=== PATIENT | male | born 1965 | race African-American/Black ===

== ENCOUNTER 2016-09-17 11:00 | Emergency (ER) | payer MEDICARE, MEDICAID ==
--- NOTE | 2016-09-17 11:35 | ER Document Report ---
ED Medical Screen (RME) - General Stated Complaint: EAR PAIN Notes: 50 yo male c/o bilat ear pain for several minutes. pt felt like he was wheezing this morning. recently treated for URI. TRAVEL OUTSIDE OF THE [place] IN LAST 30 DAYS: No - Related Data Allergies/Adverse Reactions: Penicillins Allergy (Unknown, Verified 09/17/16 11:31) cats Allergy (Uncoded 09/17/16 11:31) Past Medical History - Past Medical History Cardiac Medical History: Reports: Hx Congestive Heart Failure, Hx Hypertension GI Medical History: Reports: Hx Gastroesophageal Reflux Disease Musculoskeltal Medical History: Reports Hx Arthritis - Left knee, Reports Hx Musculoskeletal Trauma Psychiatric Medical History: Reports: Hx Depression Past Surgical History: Reports: Hx Cardiac Surgery - VSD repair - Immunizations Immunizations up to date: Yes Hx Diphtheria, Pertussis, Tetanus Vaccination: Yes
--- NOTE | 2016-09-17 14:37 | ER Document Report ---
ED General - General Chief Complaint: Ear Pain Stated Complaint: EAR PAIN TRAVEL OUTSIDE OF THE [place] IN LAST 30 DAYS: No - HPI Patient complains to provider of: ear pain throat pain Notes: Patient coming in for multiple complaints mostly complaining of ear pain for pain. Patient also is concerned about area on his scrotum. No other complaints - Related Data Allergies/Adverse Reactions: Penicillins Allergy (Unknown, Verified 09/17/16 11:31) cats Allergy (Uncoded 09/17/16 11:31) Past Medical History - Social History Smoking Status: Never Smoker Chew tobacco use (# tins/day): No Frequency of alcohol use: None Drug Abuse: None Family History: DM Patient has suicidal ideation: No Patient has homicidal ideation: No - Past Medical History Cardiac Medical History: Reports: Hx Congestive Heart Failure, Hx Hypertension Renal/ Medical History: Denies: Hx Peritoneal Dialysis GI Medical History: Reports: Hx Gastroesophageal Reflux Disease Musculoskeltal Medical History: Reports Hx Arthritis - Left knee, Reports Hx Musculoskeletal Trauma Psychiatric Medical History: Reports: Hx Depression Past Surgical History: Reports: Hx Cardiac Surgery - VSD repair - Immunizations Immunizations up to date: Yes Hx Diphtheria, Pertussis, Tetanus Vaccination: Yes Review of Systems - Review of Systems Constitutional: No symptoms reported EENT: Ear pain, Throat pain Cardiovascular: No symptoms reported Respiratory: No symptoms reported Gastrointestinal: No symptoms reported Genitourinary: No symptoms reported Male Genitourinary: No symptoms reported Musculoskeletal: No symptoms reported Skin: No symptoms reported Hematologic/Lymphatic: No symptoms reported Neurological/Psychological: No symptoms reported -: Yes All other systems reviewed and negative Physical Exam - Vital signs Vitals: Temp Pulse Resp BP Pulse Ox 98.2 F 64 16 110/65 98 09/17/16 15:35 09/17/16 15:35 09/17/16 15:35 09/17/16 15:35 09/17/16 15:35 Interpretation: Normal - General General appearance: Appears well, Alert - HEENT Head: Normocephalic, Atraumatic Eyes: Normal Cornea: Normal Extraocular movements intact: Yes Eyelashes: Normal Pupils: PERRL Ears: Normal External canal: Normal Tympanic membrane: Serous effusion Sinus: Normal - Bilateral Nasal: Normal Pharynx: Normal Neck: Normal - Respiratory Respiratory status: No respiratory distress Chest status: Nontender Breath sounds: Normal Chest palpation: Normal - Cardiovascular Rhythm: Regular Heart sounds: Normal auscultation Murmur: No - Abdominal Inspection: Normal Distension: No distension Bowel sounds: Normal Tenderness: Nontender Organomegaly: No organomegaly - Genitourinary Inspection: Other - Patient will looks to be a nevus on the scrotum Tenderness: Nontender Cremasteric reflex: Normal Scrotum: Normal - Back Back: Normal, Nontender - Extremities General upper extremity: Normal inspection, Nontender, Normal color, Normal ROM , Normal temperature General lower extremity: Normal inspection, Nontender, Normal color, Normal ROM , Normal temperature, Normal weight bearing. No: Berto's sign - Neurological Neuro grossly intact: Yes Cognition: Normal Orientation: AAOx4 [place] Coma Scale Eye Opening: Spontaneous [place] Coma Scale Verbal: Oriented Nicole Coma Scale Motor: Obeys Commands [place] Coma Scale Total: 15 Speech: Normal Motor strength normal: LUE, RUE, LLE, RLE Sensory: Normal - Psychological Associated symptoms: Normal affect, Normal mood - Skin Skin Temperature: Warm Skin Moisture: Dry Skin Color: Normal Course - Re-evaluation Re-evalutation: 09/17/16 16:12 Will treat patient with steroids to help out with his throat pain. No signs of obvious infection patient was discharged home is was encouraged follow-up with primary care physician. - Vital Signs Vital signs: Temp Pulse Resp BP Pulse Ox 98.2 F 64 16 110/65 98 09/17/16 15:35 09/17/16 15:35 09/17/16 15:35 09/17/16 15:35 09/17/16 15:35 Discharge - Discharge Clinical Impression: Viral URI Condition: Good Disposition: HOME, SELF-CARE Instructions: Upper Respiratory Illness ([facility]), Viral Syndrome ([facility]) Additional Instructions: Your symptoms are consistent with a virus. We will give you a prescription for prednisone to help out with your pain. Follow-up with your primary care physician. Prescriptions: Prednisone [Deltasone 20 mg Tablet] 2 tab PO DAILY 5 Days Referrals: AYLA PRUITT MD [ACTIVE STAFF] - Follow up in 1 week
[2016-09-17 15:47] VITALS: BP 110/65
== END 2016-09-17 15:35 | disposition home or self-care (01) ==
LOC: ER 11:00
DX: J06.9 Acute upper respiratory infection, unspecified (principal); H92.09 Otalgia, unspecified ear; R07.0 Pain in throat
CPT/HCPCS: 99282

== ENCOUNTER 2016-11-12 18:25 | Emergency (ER) | payer MEDICARE, MEDICAID ==
[2016-11-12 20:06] VITALS: BP 135/84
--- NOTE | 2016-11-13 00:20 | ER Document Report ---
ED GI/ - General Chief Complaint: Groin Pain Stated Complaint: GROIN PAIN Notes: The patient is a 51-year-old male presents with 3 days of intermittent left groin swelling, worse when he strains. Left bulge will push back into his abdomen easily. He denies pain, nausea, vomiting, diarrhea, constipation, testicular pain, fevers or dysuria. TRAVEL OUTSIDE OF THE [place] IN LAST 30 DAYS: No - Related Data Allergies/Adverse Reactions: Penicillins Allergy (Unknown, Verified 09/17/16 11:31) cats Allergy (Uncoded 09/17/16 11:31) Past Medical History - General Information source: Patient - Social History Smoking Status: Unknown if Ever Smoked Family History: DM - Past Medical History Cardiac Medical History: Reports: Hx Congestive Heart Failure, Hx Hypertension Renal/ Medical History: Denies: Hx Peritoneal Dialysis GI Medical History: Reports: Hx Gastroesophageal Reflux Disease Musculoskeltal Medical History: Reports Hx Arthritis - Left knee, Reports Hx Musculoskeletal Trauma Psychiatric Medical History: Reports: Hx Depression Past Surgical History: Reports: Hx Cardiac Surgery - VSD repair - Immunizations Immunizations up to date: Yes Hx Diphtheria, Pertussis, Tetanus Vaccination: Yes Review of Systems - Review of Systems Notes: REVIEW OF SYSTEMS: CONSTITUTIONAL: -fevers, -chills EENT: -eye pain, -difficulty swallowing, -nasal congestion CARDIOVASCULAR:-chest pain, -syncope. RESPIRATORY: -cough, -SOB GASTROINTESTINAL: -abdominal pain, - nausea, -vomiting, -diarrhea GENITOURINARY: +left groin swelling, -dysuria, -hematuria MUSCULOSKELETAL: -back pain, -neck pain SKIN: -rash or skin lesions. HEMATOLOGIC: -easy bruising or bleeding. LYMPHATIC: -swollen, enlarged glands. NEUROLOGICAL: -altered mental status or loss of consciousness, -headache, - neurologic symptoms PSYCHIATRIC: -anxiety, -depression. ALL OTHER SYSTEMS REVIEWED AND NEGATIVE. Physical Exam - Vital signs Vitals: Temp Pulse Resp BP Pulse Ox 97.4 F 79 16 135/84 H 99 11/12/16 20:05 11/12/16 20:05 11/12/16 20:05 11/12/16 20:05 11/12/16 20:05 - Notes Notes: PHYSICAL EXAMINATION: GENERAL: Well-appearing, well-nourished and in no acute distress. HEAD: Atraumatic, normocephalic. EYES: Pupils equal round and reactive to light, extraocular movements intact, sclera anicteric, conjunctiva are normal. ENT: nares patent, oropharynx clear without exudates. Moist mucous membranes. NECK: Normal range of motion, supple without lymphadenopathy LUNGS: Breath sounds clear to auscultation bilaterally and equal. No wheezes rales or rhonchi. HEART: Regular rate and rhythm without murmurs ABDOMEN: Soft, nontender, normoactive bowel sounds. Left reducible inguinal hernia. Non-tender testicles. No guarding, no rebound. EXTREMITIES: Normal range of motion, no pitting or edema. No cyanosis. NEUROLOGICAL: Cranial nerves grossly intact. Normal speech, normal gait. Normal sensory, motor, and reflex exams. PSYCH: Normal mood, normal affect. SKIN: Warm, Dry, normal turgor, no rashes or lesions noted. Course - Re-evaluation Re-evalutation: Patient with reducible left inguinal hernia. Given surgeon to follow up with and return precautions. - Vital Signs Vital signs: Temp Pulse Resp BP Pulse Ox 97.4 F 79 16 135/84 H 99 11/12/16 20:05 11/12/16 20:05 11/12/16 20:05 11/12/16 20:05 11/12/16 20:05 Discharge - Discharge Clinical Impression: Reducible left inguinal hernia Condition: Good Disposition: HOME, SELF-CARE Additional Instructions: Follow-up with the general surgeon to have your hernia repaired. Hernia You have a hernia. A hernia forms at a weak spot in the abdominal wall. Bowel slips out of the abdominal cavity into the weak spot. Hernias tend to occur in the groin (especially in males), the fold of the thigh, the naval, or at a surgical scar. Surgical repair of the defect is usually necessary. The problem tends to get worse. It's important that you follow up as recommended. For now, you should avoid straining, heavy lifting, and vigorous exercise. Complications occur if the hernia becomes tightly stuck. You should come back immediately if the area becomes increasingly painful, swollen, or discolored, or if you develop abdominal pain and vomiting. Forms: Return to Work Referrals: PAXTON VILLANUEVA MD [Primary Care Provider] - Follow up as needed [facility] [Provider Group] - Follow up as needed
== END 2016-11-13 00:45 | disposition home or self-care (01) ==
LOC: ER 18:25
DX: K40.90 Unilateral inguinal hernia, without obstruction or gangrene, not specified as recurrent (principal); R10.30 Lower abdominal pain, unspecified
CPT/HCPCS: 99283

== ENCOUNTER → 2016-12-08 | Outpatient (CLI) | payer MEDICARE, MEDICAID | LOC: RAD 13:22 | PROVIDERS: ATTEND Surgery | DX: R10.30 Lower abdominal pain, unspecified (principal); K40.40 Unilateral inguinal hernia, with gangrene, not specified as recurrent | CPT/HCPCS: 76881 ==

== ENCOUNTER → 2016-12-25 | Outpatient (CLI) | payer MEDICARE, MEDICAID ==
--- NOTE | 2016-12-25 13:17 | RADIOLOGY REPORT (SQ) ---
EXAM DESCRIPTION: CTA CHEST COMPLETED DATE/TIME: 12/25/2016 1:04 pm REASON FOR STUDY: DYSPNEA (R06.00), CHEST PAIN (R07.9) R06.00 DYSPNEA, UNSPECIFIED R07.9 CHEST MARY N, UNSPECIFIED COMPARISON: CT angio chest 06/18/2013 CT chest abdomen pelvis 06/14/2013 TECHNIQUE: CT scan of the chest performed using helical scanning technique with dynamic intravenous contrast injection. Images reviewed with lung, soft tissue and bone windows. Reconstructed coronal and sagittal MPR images reviewed. Additional 3 dimensional post-processing performed to develop Maximal Intensity Projection images (CA P). All images stored on PACS. All CT scanners at this facility use dose modulation, iterative reconstruction, and/or weight based d osing when appropriate to reduce radiation dose to as low as reasonably achievable (ALARA). [facility]: Dose Right [facility]: CareDose [facility]: Dose Right [facility]: Teradose 4D [facility]: EffiCity CONTRAST TYPE AND DOSE: 59 mL Isovue 370- low osmolar. RENAL FUNCTION: Creatinine 1.2 RADIATION DOSE: 20.65 mGy. LIMITATIONS: None. FINDINGS: LUNGS AND PLEURA: No masses, infiltrates, pneumothorax. No pleural effusions, calcificati ons. AORTA AND GREAT VESSELS: No aneurysm or dissection. HEART: No pericardial effusion. PULMONARY ARTERIES: No emboli visualized in the main pulmonary arteries or the segmental branches. HILAR AND MEDIASTINAL STRUCTURES: No identified masses or abnormal nodes. HARDWARE: None in the chest. UPPER ABDOMEN: No significant findings. Limited exam. THYROID AND OTHER SOFT TISSUES: No masses. No adenopathy. BONES: No acute finding. Post sternotomy 3D MIPS: Confirm above findings. OTHER: No other significant finding. IMPRESSION: NORMAL CTA OF THE CHEST. NO PULMONARY EMBOLI. TECHNICAL DOCUMENTATION: JOB ID: [id number] Quality ID # [id number]: Final reports with documentation of one or more dose reduction techniques (e.g., Au tomated exposure control, adjustment of the mA and/or kV according to patient size, use of iterative reconstruction technique) 2010 [employer]- All Rights Reserved
== END ==
LOC: RAD 12:10
PROVIDERS: ATTEND Physician Assistant Medical
DX: R06.00 Dyspnea, unspecified (principal); R07.9 Chest pain, unspecified
CPT/HCPCS: 71275

== ENCOUNTER 2016-12-30 08:15 | Day surgery (SDC) | payer MEDICARE, MEDICAID ==
[2016-12-23 12:31] LABS: ABSOLUTE EOSINOPHILS # (AUTO) 0.1 10^3/uL (0.0-0.6); ABSOLUTE LYMPHOCYTES (AUTO) 1.7 10^3/uL (0.5-4.7); ABSOLUTE MONOCYTES (AUTO) 0.5 10^3/uL (0.1-1.4); BASOPHILS % (AUTO) 0.9 % (0-2); EOSINOPHILS % (AUTO) 3.3 % (0-6); HEMATOCRIT 45.2 % (37.9-51.0); HEMOGLOBIN 15.1 g/dL (13.5-17.0); HGB HCT DIFFERENCE 0.1; LYMPHOCYTES % (AUTO) 38.6 % (13-45); MEAN CORPUSCULAR HEMOGLOBIN 30.9 pg (27.0-33.4); MEAN CORPUSCULAR HGB CONC 33.3 g/dL (32.0-36.0); MEAN CORPUSCULAR VOLUME 93 fl (80-97); MONOCYTES % (AUTO) 11.2 % (3-13); RED BLOOD COUNT 4.88 10^6/uL (4.35-5.55); RED CELL DISTRIBUTION WIDTH 13.9 % (11.5-14.0); WHITE BLOOD COUNT 4.3 10^3/uL (4.0-10.5)
[2016-12-23 13:07] LABS: ANION GAP 14 (5-19); BLOOD UREA NITROGEN 22 mg/dL (7-20); CALCIUM 9.9 mg/dL (8.4-10.2); CARBON DIOXIDE 28 mmol/L (22-30); CHLORIDE 100 mmol/L (98-107); CREATININE RESULT 1.16 mg/dL (0.52-1.25); GLUCOSE 80 mg/dL (75-110); POTASSIUM 4.6 mmol/L (3.6-5.0); SODIUM 142.1 mmol/L (137-145)
--- NOTE | 2016-12-24 00:11 | EKG REPORT ---
SEVERITY:- NORMAL ECG - SINUS RHYTHM : Confirmed by: Josse hCi 24-Dec-2016 00:11:29
[~2016-12-30 08:15] MED LIST: BACITRACIN INJ 50,000 UNIT VIAL ONE; BUPIVACAINE HCL 0.25 % INJ/PF (2.5 MG/1 ML) 30 ML VIAL ONE; CLINDAMYCIN 600 MG/D5W RTU 600 MG/50 ML RTUPB IV PRN; LACTATED RINGERS 1000 ML IV PRN; LIDOCAINE 0.5% INJ-PF (5 MG/ML) 50 ML SDV ONE; LIDOCAINE 0.5% INJ-PF (5 MG/ML) 50 ML SDV SUBCUT PRN
[2016-12-30] MEDS ORDERED: MIDAZOLAM 2 MG/2 ML INJ ONE (09:54)
[2016-12-30] MEDS ORDERED: ACETAMINOPHEN 100 ML IV ONE (09:54)
[2016-12-30] MEDS ORDERED: FENTANYL CITRATE INJ/PF 250 MCG/5 ML AMPULE ONE (09:54)
[2016-12-30] MEDS ORDERED: PROPOFOL INJ 200 MG/20 ML VIAL IV ONE (09:54)
[2016-12-30] MEDS ORDERED: CLINDAMYCIN PHOSPHATE INJ 300 MG/2 ML SDV ONE (10:14)
[2016-12-30] MEDS ORDERED: ONDANSETRON HCL INJ/PF 4 MG/2 ML SDV IV PRN (10:32)
[2016-12-30] MEDS ORDERED: FENTANYL CITRATE INJ/PF 100 MCG/2 ML AMPUL IV PRN ×3 (10:32)
[2016-12-30] MEDS ORDERED: MORPHINE SULFATE 10 MG/ML INJ IV PRN ×2 (10:32→12:40)
[2016-12-30] MEDS ORDERED: MEPERIDINE HCL/PF INJ 25 MG/1 ML DISP.SYRIN IV PRN (10:32)
[2016-12-30] MEDS ORDERED: PROMETHAZINE HCL INJ 25 MG/1 ML VIAL IV PRN ×2 (10:32)
[2016-12-30] MEDS ORDERED: DIPHENHYDRAMINE HCL 50 MG/ML VIAL IV PRN (10:32)
[2016-12-30] MEDS ORDERED: OXYCODONE-ACETAMINOPHEN 5-325 MG TABLET PO PRN ×3 (10:32→12:41)
--- NOTE | 2016-12-30 12:01 | Operative Report ---
Operative Report DATE OF SURGERY: 12/30/16 PREOPERATIVE DIAGNOSIS: Symptomatic left inguinal hernia POSTOPERATIVE DIAGNOSIS: Symptomatic left inguinal hernia, indirect, lipoma of cord. OPERATION: Repair of left inguinal hernia with mesh, resection of lipoma of cord. SURGEON: RAJIV GIBBS SOLE SEAMER: DAVINA ALAMO ANESTHESIA: GA TISSUE REMOVED OR ALTERED: Lipoma of cord COMPLICATIONS: None ESTIMATED BLOOD LOSS: 10 mL. INTRAOPERATIVE FINDINGS: Of an indirect left inguinal hernia, relatively small sac, much adhesions to adjacent tissues. The ilioinguinal nerve identified. Its tract in this anatomy is such that it would be impacted by the mesh. It was intentionally locally anesthetize cauterized and transected. The hope is to reduce the possibility of inguinodynia. A lipoma of the cord was identified resected. Nice preperitoneal repair was accomplished with a Prolene hernia system mesh. PROCEDURE: After obtaining informed consent and going over the procedure with [the patient. ], he was taken to the operating room, he was anesthetized and intubated. The abdomen was prepped and draped in the usual sterile fashion. After the universal timeout, in which it was verified that the patient received IV antibiotic, the procedure commenced. A transverse incision was made in the left lower abdomen abdominal, groin area, just above the pubic tubercle. 6 cm in length.Local, regional anesthesia was infiltrated, just before incision.. Incision was made with a [15 blade scalpel] . Dissection now proceeded through the subcutaneous tissue down to the external oblique aponeurosis. The external ring was identified and the external oblique opened in the line of its fibers. The inguinal canal was thus displayed. Dissection was facilitated by the use a headlight and using loupe magnification. The spermatic cord was dissected off the pubic tubercle and surrounded with a moist Brian drain, the cremasteric fascia was now incised longitudinally revealing the contents of the spermatic cord. The sac was readily evident and this was grasped with a hemostat. It was now dissected in a retrograde fashion into the retroperitoneal space. It was now reduced within the the preperitoneal space. A lipoma of the cord was also dissected away from the cord content, doubly clamped transected and ligated the preperitoneal space was now developed circumferentially. It easily accommodated a sponge which was removed. Hemostasis was checked for and ensured there in. The space between the external and internal oblique aponeuroses was now developed to accommodate the external portion of the mesh. This point it was decided to transect the ilioinguinal nerve due to its anatomy in this case which would be impacted by the mesh. Local anesthesia was infiltrated within it and it was transected using cautery. Having done so a Prolene hernia system mesh was now folded, in the manager part's approved fashion and inserted into the preperitoneal space. The internal portion was deployed flat in the preperitoneal space the external portion was unfolded and tucked beneath the external oblique. Secured with a 0 PDS suture to the internal oblique superiorly, the fascia adjacent to the pubic tubercle medially, inferiorly it was split up to the connector, the the split mesh was now used to surround the spermatic cord. It was reapproximated with a suture of 0 PDS. 0 PDS was now used to approximate the inferior border of the mesh to the shelving edge of Poupart's ligament with a single suture. Laterally the mesh was tucked beneath the external oblique. The external oblique was now reconstituted using a continuous suture of 3-0 PDS. 3-0 PDS interrupted sutures were used to approximate the subcutaneous tissues after removing the [place] drain. The skin was closed using a continuous subcuticular suture of 4-0 Monocryl reinforced with Steri-Strips over benzoin. The first mate provided retraction, thus facilitating the operative view. Controlled bleeding. The first mate also followed the suturing, thus facilitating accurate suture placement. Sutured skin and applied dressings. Copies dictated operative report to Dr. Rajiv Christensen MD.
[2016-12-30] MEDS ORDERED: DEXTROSE 5%-1/2 NORMAL SALINE 1,000 ML IV PRN (12:42)
[2016-12-30] MEDS ORDERED: DEXAMETHASONE SOD PHOSPHATE INJ 4 MG/1 ML VIAL ONE (13:52)
[2016-12-30] MEDS ORDERED: METOCLOPRAMIDE HCL INJ/PF 10 MG/2 ML SDV ONE (13:52)
[2016-12-30] MEDS ORDERED: ONDANSETRON HCL INJ/PF 4 MG/2 ML SDV ONE (13:52)
[2016-12-30] MEDS ORDERED: LIDOCAINE 2% INJ-PF (20 MG/ML) 10 ML AMPUL ONE (13:52)
[2016-12-30] MEDS ORDERED: GLYCOPYRROLATE INJ 0.4 MG/2 ML VIAL ONE (13:52)
[2016-12-30] MEDS ORDERED: SUCCINYLCHOLINE CHLORIDE INJ 200 MG/10 ML VIAL ONE (13:52)
[2016-12-30] MEDS: KETOROLAC TROMETHAMINE 10 MG TABLET PO SCH ×2 (14:34→23:07)
[2016-12-31] MEDS: KETOROLAC TROMETHAMINE 10 MG TABLET PO SCH ×2 (05:35→14:58)
--- NOTE | 2016-12-31 13:07 | PDOC DISCHARGE SUMMARY ---
Discharge Summary (SDC) - Discharge Final Diagnosis: Symptomatic left inguinal hernia Date of Surgery: 12/30/16 Discharge Date: 12/31/16 Treatment or Instructions: Discharge home Diet ,,as tolerated.. Activities within moderation encouraged. Follow up in my office by appointment in about [1 week]. Call for appointment. Leave wounds [covered], [keep clean and dry, until office visit in 1 week]. Hold of on school/work [until evaluation in office]. May shower [in 48 hrs], [try to keep operated area as dry as possible]. Referrals: RAJIV ZALDIVAR MD [ACTIVE STAFF] - (FOLLOW UP IN 1 WK) Discharge Diet: As Tolerated Respiratory Treatments at Home: Deep Breathing/Coughing Discharge Activity: No Lifting Over 10 Pounds, Walk Frequently Report the Following to Your Physician Immediately: Shortness of Breath, Unusual Bleeding
[2016-12-31 16:23] VITALS: BP 114/72
== END 2016-12-31 18:20 | disposition home or self-care (01) ==
LOC: OROUT 08:15 → 5 14:10 → OROUT 12-31 18:20
PROVIDERS: ATTEND Surgery
PROC: 0YU60JZ Supplement Left Inguinal Region with Synthetic Substitute, Open Approach (ICD-10-PCS; principal; 2016-12-30 10:00)
DX: K40.90 Unilateral inguinal hernia, without obstruction or gangrene, not specified as recurrent (principal); D17.6 Benign lipomatous neoplasm of spermatic cord; I10 Essential (primary) hypertension; Z88.0 Allergy status to penicillin; Z87.891 Personal history of nicotine dependence; Z79.899 Other long term (current) drug therapy; I25.2 Old myocardial infarction; Z87.74 Personal history of (corrected) congenital malformations of heart and circulatory system
CPT/HCPCS: 93005; 36415 ×2; 84132; 85025; 80048; 88304 ×2; 93010; 49505; C1781; J2250; J3490 ×3; J1100; J3010; J2765; J0330; J2405; A9270 ×2; J2704; J0131; 830

== ENCOUNTER 2017-01-11 14:23 | Emergency (ER) | payer MEDICARE, MEDICAID ==
--- NOTE | 2017-01-11 14:41 | ER Document Report ---
ED Medical Screen (RME) - General Chief Complaint: Post Surgical Bleeding Stated Complaint: PAIN,BLEEDING AT SURGICAL SITE Time Seen by Provider: 01/11/17 14:36 Mode of Arrival: Ambulatory Information source: Patient TRAVEL OUTSIDE OF THE [place] IN LAST 30 DAYS: No - HPI Patient complains to provider of: Pain and bleeding from surgical site, dysuria Notes: 01/11/17 14:40 51-year-old male presents to the emergency room complaining of pain and bleeding at surgical site, states he had a hernia repair performed on 12/30/2016, he still has the original honeycomb dressing in place and today noted increased pain with some bleeding from the site, he is also complaining of dysuria - Related Data Allergies/Adverse Reactions: Penicillins Allergy (Unknown, Verified 12/23/16 10:45) cats Allergy (Uncoded 12/23/16 10:45) Past Medical History - Past Medical History Cardiac Medical History: Reports: Hx Congestive Heart Failure, Hx Coronary Artery Disease, Hx Hypertension Pulmonary Medical History: Denies: Hx Asthma, Hx Bronchitis, Hx COPD, Hx Pneumonia Neurological Medical History: Reports: 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 Denies : Hx Cerebrovascular Accident Renal/ Medical History: Denies: Hx Peritoneal Dialysis GI Medical History: Reports: Hx Gastroesophageal Reflux Disease Musculoskeltal Medical History: Reports Hx Arthritis - Left knee & hand, Reports Hx Musculoskeletal Trauma Psychiatric Medical History: Reports: Hx Depression Past Surgical History: Reports: Hx Cardiac Surgery - VSD repair - Immunizations Immunizations up to date: Yes Hx Diphtheria, Pertussis, Tetanus Vaccination: Yes Physical Exam - Vital signs Vitals: Temp Pulse Resp BP Pulse Ox 98 F 76 18 131/64 H 98 01/11/17 14:31 01/11/17 14:31 01/11/17 14:31 01/11/17 14:31 01/11/17 14:31 Course - Vital Signs Vital signs: Temp Pulse Resp BP Pulse Ox 98 F 76 18 131/64 H 98 01/11/17 14:31 01/11/17 14:31 01/11/17 14:31 01/11/17 14:31 01/11/17 14:31
[2017-01-11 15:23] LABS: APPEARANCE,URINE CLEAR; BILIRUBIN,URINE NEGATIVE (NEGATIVE); GLUCOSE, URINE NEGATIVE (NEGATIVE); KETONES,URINE NEGATIVE (NEGATIVE); LEUKOCYTE ESTERASE,URINE NEGATIVE (NEGATIVE); NITRITE,URINE NEGATIVE (NEGATIVE); PROTEIN,URINE NEGATIVE (NEGATIVE); URINE SPECIFIC GRAVITY 1.021; UROBILINOGEN,URINE NEGATIVE mg/dL (<2.0)
--- NOTE | 2017-01-11 15:55 | ER Document Report ---
ED General - General Mode of Arrival: Ambulatory Information source: Patient TRAVEL OUTSIDE OF THE [place] IN LAST 30 DAYS: No - HPI Onset: Other - Refer to HPI notes Exacerbated by: Other Similar symptoms previously: Yes Recently seen / treated by doctor: Yes - Dr. Zaldivar - General Chief Complaint: Post Surgical Bleeding Stated Complaint: PAIN,BLEEDING AT SURGICAL SITE Time Seen by Provider: 01/11/17 14:36 Notes: Patient is a 51-year old male presenting to the emergency department for pain and bleeding to his recent surgical site. Patient had a left inguinal hernia repair on 12/30/2016. Patient states he has the original honeycomb dressing in place. Patient complains of some increased pain, bleeding, and dysuria. Patient states he had swelling to his scrotum and he has pain with urination. Patient also complains of a fever on 12/31/2016 but has not taken his temperature recently. Patient's surgeon was Dr. Zaldivar. Patient is not taking any blood thinners. Patient states he ran out of his pain medications and he has been taking ibuprofen. Patient is allergic to penicillin. (MARIA ELENA FARFAN) - Related Data Allergies/Adverse Reactions: Penicillins Allergy (Unknown, Verified 01/11/17 15:16) cats Allergy (Uncoded 01/11/17 15:16) Past Medical History - General Information source: Patient - Social History Smoking Status: Never Smoker Cigarette use (# per day): No Chew tobacco use (# tins/day): No Frequency of alcohol use: None Drug Abuse: None Family History: DM Patient has suicidal ideation: No Patient has homicidal ideation: No - Past Medical History Cardiac Medical History: Reports: Hx Congestive Heart Failure, Hx Coronary Artery Disease, Hx Hypertension Neurological Medical History: Reports: 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 GI Medical History: Reports: Hx Gastroesophageal Reflux Disease Musculoskeltal Medical History: Reports Hx Arthritis - Left knee & hand, Reports Hx Musculoskeletal Trauma Psychiatric Medical History: Reports: Hx Depression Past Surgical History: Reports: Hx Cardiac Surgery - VSD repair - Immunizations Immunizations up to date: Yes Hx Diphtheria, Pertussis, Tetanus Vaccination: Yes Review of Systems - Review of Systems Constitutional: No symptoms reported EENT: No symptoms reported Cardiovascular: No symptoms reported Respiratory: No symptoms reported Gastrointestinal: No symptoms reported Genitourinary: No symptoms reported Male Genitourinary: No symptoms reported Musculoskeletal: No symptoms reported Skin: No symptoms reported Hematologic/Lymphatic: No symptoms reported Neurological/Psychological: No symptoms reported -: Yes All other systems reviewed and negative Physical Exam - Vital signs Vitals: Temp Pulse Resp BP Pulse Ox 98 F 76 18 131/64 H 98 01/11/17 14:31 01/11/17 14:31 01/11/17 14:31 01/11/17 14:31 01/11/17 14:31 - Notes Notes: GENERAL: Alert, interacts well. No acute distress. HEAD: Normocephalic, atraumatic. EYES: Pupils equal, round, and reactive to light. Extraocular movements intact. ENT: Oral mucosa moist, tongue midline. NECK: Full range of motion. Supple. Trachea midline. LUNGS: Clear to auscultation bilaterally, no wheezes, rales, or rhonchi. No respiratory distress. HEART: Regular rate and rhythm. 2/6 systolic murmur, no gallops or rubs. ABDOMEN: Soft, non-tender. Non-distended. Bowel sounds present in all 4 quadrants. There is a well approximated surgical incision consistent with a left inguinal hernia repair; there is small amount of dried blood to the incision with no erythema and no fluctuance no swelling. Area under the surgical site is firm but nontender to palpation. This exam was chaperoned by Zachary Richmond, LOVELY. MALE GENITOURINARY: No pain or tenderness to the testicles, no edema. EXTREMITIES: Moves all 4 extremities spontaneously. No edema. No cyanosis. NEUROLOGICAL: Alert and oriented x3. Normal speech. Neurologically is grossly intact. PSYCH: Normal affect, normal mood. SKIN: Warm, dry, normal turgor. No rashes or lesions noted. (MARIA ELENA FARFAN) Course - Consults Dr. Zaldivar Time consulted: 15:27 - Re-evaluation Re-evalutation: 01/11/17 19:11 Urinalysis shows small amount of blood but no evidence of infection. Surgical site is quite swollen but it is not fluctuant nor is it warm, there is no active bleeding, no concern for infection. I did discuss this patient with Dr. Zaldivar who confirms this is what the surgical site looked like earlier in the week and he states that he would like to follow-up with the patient in his office on Thursday. No indication for further testing at this time. Patient was discharged home. (JOSE ALEJANDRO PARRA) - Vital Signs Vital signs: Temp Pulse Resp BP Pulse Ox 97.2 F 65 17 112/59 L 100 01/11/17 19:41 01/11/17 19:41 01/11/17 19:41 01/11/17 19:41 01/11/17 19:41 - Laboratory Laboratory results interpreted by me: 01/11/17 14:50 Urine Blood SMALL H - Consults Dr. Zaldivar Reason for consultation: 01/11/17 15:[address] Zaldivar and discussed patient's exam and symptoms; Dr. Zaldivar states he saw the patient in his office a few days prior with the same exam ( firm area under surgical site). He states the patient did not have a catheter during the procedure. He states the patient should be stable for discharge as long as his urine lab results are normal. (MARIA ELENA FARFAN) Discharge - Discharge Clinical Impression: S/P left inguinal hernia repair, Dysuria, Hematuria Condition: Stable Disposition: HOME, SELF-CARE Additional Instructions: You have a small amount of blood in your urine but there is no evidence of infection. There is no evidence of infection at your surgical site nor is there any sign of any complication. I did discuss your case with Dr. Zaldivar and he would like you to follow-up with him in his office on Thursday. Please call his office to confirm a follow-up appointment with him this week. Please return should you develop fevers or any new or concerning symptoms. Referrals: PAXTON VILLANUEVA MD [Primary Care Provider] - Follow up as needed RAJIV ZALDIVAR MD [ACTIVE STAFF] - Follow up in 3-5 days Scribe Attestation: 01/11/17 23:56 I personally performed the services described in the documentation, reviewed and edited the documentation which was dictated to the scribe in my presence, and it accurately records my words and actions. (JOSE ALEJANDRO PARRA) Scribe Documentation - Scribe Written by Kareem:: Kareem Dent, 01/11/17 16:48 acting as scribe for :: Radha
[2017-01-11 19:48] VITALS: BP 112/59
== END 2017-01-11 19:48 | disposition home or self-care (01) ==
LOC: ER 14:23
DX: R31.9 Hematuria, unspecified (principal); R30.0 Dysuria; Z98.890 Other specified postprocedural states; I10 Essential (primary) hypertension; I25.10 Atherosclerotic heart disease of native coronary artery without angina pectoris; Z88.0 Allergy status to penicillin; Z91.048 Other nonmedicinal substance allergy status
CPT/HCPCS: 81001; 87086; 99283

== ENCOUNTER → 2017-01-13 | Outpatient (CLI) | payer MEDICARE, MEDICAID ==
--- NOTE | 2017-01-13 17:30 | XCELERA REPORT ---
[address] [address] Lower Extremity Venous Evaluation Name: BRENNAN DELGADO Age: 51 yrs Gender: Male : 1965 Patient Status: Outpatient Patient Location: Study Date: 01/13/2017 02:33 PM Procedure: Color flow and duplex imaging of the veins of the left lower extremity as well as the right Common Femoral vein. Reason For Study: LLE SWELLING Ordering Physician: PAXTON VILLANUEVA Performed By: Sylvia Burnett Right Sided Venous Evaluation The right common femoral vein is fully compressible. Spontaneous and phasic flow is present in the right common femoral vein. Left Sided Venous Evaluation Normal vessel filling wall to wall, compression and augmentation as well as Colour flow down to the infrageniculate veins. Interpretation Summary No duplex evidence of DVT or obstruction in the left lower extremity nor in the right Common Femoral vein. : PAXTON VILLANUEVA > Akbar Christensen
== END ==
LOC: SP 14:20
PROVIDERS: ATTEND Internal Medicine
DX: R22.42 Localized swelling, mass and lump, left lower limb (principal)
CPT/HCPCS: 93971

== ENCOUNTER 2017-02-16 09:38 | Emergency (ER) | payer MEDICARE, MEDICAID ==
[2017-02-16] MEDS ORDERED: TETRACAINE HCL 0.5% OPH SOLN 0.6 ML DROPERETTE OU ONE (10:28)
--- NOTE | 2017-02-16 11:27 | ER Document Report ---
HPI - HPI Pain Level: 5 Notes: Patient is a 51-year-old male with a history of hypertension comes the ED complaining of a bump to his left lower eyelid 1 day without any discharge or redness in the eye. Patient states that he does have pain to palpation of the lower eyelid. Denies any light sensitivity or foreign body sensation to the eye. Denies any itching. Patient states that he is still able move his eye(s) around without any difficulties or pain. Patient denies any use of glasses or contacts, but has not had an eye exam in years. Patient denies any headache, fever, neck pain/stiffness, ear pain, tinnitus, dizziness, URI, sore throat, chest pain, palpitations, syncope, cough, wheeze, shortness of breath, abdominal pain, nausea/vomiting/diarrhea, dysuria, joint pains, rash. Denies any recent travel, illness, sick contacts. Patient denies any other concerns at this time and is otherwise feeling well. - ROS Notes: REVIEW OF SYSTEMS: CONSTITUTIONAL : Denies fever, chills, or sweats. Denies recent illness. EENT: Denies ear, throat, or mouth pain or symptoms. Denies nasal or sinus congestion or discharge. Denies throat, tongue, or mouth swelling or difficulty swallowing. CARDIOVASCULAR: Denies chest pain. Denies palpitations or racing or irregular heart beat. Denies ankle edema. RESPIRATORY: Denies cough, cold, or chest congestion. Denies shortness of breath, difficulty breathing, or wheezing. GASTROINTESTINAL: Denies abdominal pain or distention. Denies nausea, vomiting , or diarrhea. Denies blood in vomitus, stools, or per rectum. Denies black, tarry stools. Denies constipation. GENITOURINARY: Denies difficulty urinating, painful urination, burning, frequency, blood in urine, or discharge. MUSCULOSKELETAL: Denies back or neck pain or stiffness. Denies joint pain or swelling. SKIN: Denies rash, lesions or sores. NEUROLOGICAL: Denies confusion or altered mental status. Denies passing out or loss of consciousness. Denies dizziness or lightheadedness. Denies headache. Denies weakness or paralysis or loss of use of either side. Denies problems with gait or speech. Denies sensory loss, numbness, or tingling. ALL OTHER SYSTEMS REVIEWED AND NEGATIVE. Dictation was performed using Dragon voice recognition software - CARDIOVASCULAR Cardiovascular: DENIES: Chest pain - DERM Skin Color: Normal Past Medical History - Social History Smoking Status: Never Smoker Frequency of alcohol use: None Drug Abuse: None Family History: DM - Past Medical History Cardiac Medical History: Reports: Hx Congestive Heart Failure, Hx Coronary Artery Disease, Hx Hypertension Pulmonary Medical History: Denies: Hx Asthma, Hx Bronchitis, Hx COPD, Hx Pneumonia Neurological Medical History: Reports: Hx Seizures - [place] 1971 during ASD. Denies : Hx Cerebrovascular Accident Renal/ Medical History: Denies: Hx Peritoneal Dialysis GI Medical History: Reports: Hx Gastroesophageal Reflux Disease Musculoskeltal Medical History: Reports Hx Arthritis - Left knee & hand, Reports Hx Musculoskeletal Trauma Psychiatric Medical History: Reports: Hx Depression Past Surgical History: Reports: Hx Cardiac Surgery - VSD repair - Immunizations Immunizations up to date: Yes Hx Diphtheria, Pertussis, Tetanus Vaccination: Yes Vertical Provider Document - CONSTITUTIONAL Agree With Documented VS: Yes Notes: PHYSICAL EXAMINATION: GENERAL: Well-appearing, well-nourished and in no acute distress. HEAD: Atraumatic, normocephalic. EYES: Pupils equal round and reactive to light, extraocular movements intact, sclera anicteric, conjunctiva are normal. No watering, purulent discharge, or redness. No orbital cellulitis. + external hordeolum to the left lower lid with mild tenderness to palp. No visual field loss. No papilledema. ENT: EAC clear b/l. TM's intact b/l without erythema, fluid, or perforation. Nares patent and without discharge. oropharynx clear without exudates. No tonsilar hypertrophy or erythema. Moist mucous membranes. No sinus tenderness. No facial swelling. NECK: Normal range of motion, supple without lymphadenopathy. No rigidity/ meningismus. LUNGS: Breath sounds clear to auscultation bilaterally and equal. No wheezes rales or rhonchi. HEART: Regular rate and rhythm without murmurs, rubs, gallops. Musculoskeletal: FROM to passive/active. Strength 5+/5. Extremities: No cyanosis, clubbing, or edema b/l. Peripheral pulses 2+. Capillary refill less than 3 seconds. NEUROLOGICAL: Cranial nerves grossly intact. Normal speech, normal gait. Normal sensory, motor exams PSYCH: Normal mood, normal affect. SKIN: Warm, Dry, normal turgor, no rashes or lesions noted. - INFECTION CONTROL TRAVEL OUTSIDE OF THE [place] IN LAST 30 DAYS: No - RESPIRATORY O2 Sat by Pulse Oximetry: 99 Course - Re-evaluation Re-evalutation: 02/16/17 11:30 Patient is afebrile, well-hydrated, 51-year-old male who presents the ED with an external hordeolum of the left lower eyelid based on H&P today. Vitals are stable. PE otherwise unremarkable. Eye exam unremarkable otherwise. Low suspicion for any retained corneal or lid foreign body, orbital cellulitis or abscess, acute glaucoma, penetrating globe injury, retinal detachment, meningitis. Reviewed with patient that condition can change from initial presentation and any scar symptoms closely and seek medical attention so. I will send him home with a prescription for gentamicin ointment to use as directed. Conservative measures otherwise for symptoms. Advised recheck with an ground source heat pump technician this week along with his PCM. Return to ED with any worsening/concerning symptoms otherwise as reviewed in discharge. Patient is in agreement. - Vital Signs Vital signs: Temp Pulse Resp BP Pulse Ox 98.2 F 56 L 14 119/75 99 02/16/17 09:51 02/16/17 09:51 02/16/17 09:51 02/16/17 09:51 02/16/17 09:51 Procedures - Eye Procedure Left Time completed: 11:15 - flourescein/wood's lamp Eye Irrigated w/ Saline (ccs): 30 Fluorescein applied: Left Slit lamp used: No Notes: 02/16/17 11:29 No abrasion, laceration, ulceration, or trauma noted on exam No foreign body noted or redness No discharge Discharge - Discharge Clinical Impression: External hordeolum Qualifiers: Laterality: left Eyelid: lower Qualified Code(s): H00.015 - Hordeolum externum left lower eyelid Condition: Stable Disposition: HOME, SELF-CARE Additional Instructions: Wash hands regularly Warm moist compresses to the left eye several times per day Tylenol/ibuprofen as needed Use erythromycin as directed Recheck with an ground source heat pump technician this week Recheck with your PCM this week Return to the ED with any worsening symptoms and/or development of fever, headache, facial swelling, eye redness, eye pain, changes in vision, chest pain , palpitations, syncope, shortness of breath, trouble breathing, abdominal pain , n/v/d, numbness/tingling, or other worsening symptoms that are concerning to you. Prescriptions: Erythromycin Base [Erythromycin] 1 gm OS QID #1 bottle
[2017-02-16 11:51] VITALS: BP 120/74
== END 2017-02-16 11:47 | disposition home or self-care (01) ==
LOC: ER 09:38
DX: H00.015 Hordeolum externum left lower eyelid (principal); I10 Essential (primary) hypertension; I25.10 Atherosclerotic heart disease of native coronary artery without angina pectoris
CPT/HCPCS: 99283

== ENCOUNTER 2017-03-03 08:17 | Emergency (ER) | payer MEDICARE, MEDICAID ==
[2017-03-03] MEDS ORDERED: ACETAMINOPHEN 325 MG TABLET PO ONE (08:48)
--- NOTE | 2017-03-03 09:17 | ER Document Report ---
ED Hand/Wrist Injury - General Chief Complaint: Finger Injury Stated Complaint: LEFT HAND FINGER INJURY Time Seen by Provider: 03/03/17 08:37 Notes: Patient is a 51-year-old male who presents emergency department complaining of left fourth digit injury on Thursday. Patient states that he showed car door and is only increased in swelling and pain. Patient notes she is blood underneath the nail bed. Otherwise he denies any other issues. Full range of motion. Only tender on the top of the nail not on the bottom. Denies any redness, drainage. Past medical history significant for hypertension, hyperlipidemia TRAVEL OUTSIDE OF THE [place] IN LAST 30 DAYS: No - Related Data Allergies/Adverse Reactions: Penicillins Allergy (Unknown, Verified 03/03/17 08:21) dog dander Allergy (Verified 03/03/17 08:21) cats Allergy (Uncoded 03/03/17 08:21) Home Medications: Current Home Medications Famotidine 20 mg PO DAILY 03/03/17 [History] Ferrous Sulfate [Feosol 325 mg Tablet] 325 mg PO DAILY 03/03/17 [History] Losartan/Hydrochlorothiazide [Hyzaar 100-25 Tablet] 1 mg PO DAILY 03/03/17 [ History] Prednisone 20 mg PO DAILY 03/03/17 [History] Past Medical History - Social History Smoking Status: Never Smoker Chew tobacco use (# tins/day): No Frequency of alcohol use: None Drug Abuse: None Family History: DM Patient has suicidal ideation: No Patient has homicidal ideation: No - Past Medical History Cardiac Medical History: Reports: Hx Congestive Heart Failure, Hx Coronary Artery Disease, Hx Hypertension Pulmonary Medical History: Denies: Hx Asthma, Hx Bronchitis, Hx COPD, Hx Pneumonia Neurological Medical History: Reports: 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 Denies : Hx Cerebrovascular Accident Renal/ Medical History: Denies: Hx Peritoneal Dialysis GI Medical History: Reports: Hx Gastroesophageal Reflux Disease Musculoskeltal Medical History: Reports Hx Arthritis - Left knee & hand, Reports Hx Musculoskeletal Trauma Psychiatric Medical History: Reports: Hx Depression Past Surgical History: Reports: Hx Cardiac Surgery - VSD repair - Immunizations Immunizations up to date: Yes Hx Diphtheria, Pertussis, Tetanus Vaccination: Yes Review of Systems - Review of Systems Constitutional: No symptoms reported Musculoskeletal: See HPI Skin: See HPI -: Yes All other systems reviewed and negative Physical Exam - Vital signs Vitals: Temp Pulse BP Pulse Ox 97.5 F 69 130/82 H 98 03/03/17 08:20 03/03/17 08:20 03/03/17 08:20 03/03/17 08:20 - General General appearance: Appears well, Alert In distress: None - Cardiovascular Pulses: Normal: Radial Normal capillary refill: Yes - Extremities Forearm: Normal Wrist: Normal Hand: Tender - over nail bed, Nail injury - subungal hematoma,, Other - no pain on fat pad - Skin Skin Temperature: Warm Skin Moisture: Dry Skin Color: Normal Skin Turgor: Elastic Skin irregularity: Erythema Course - Re-evaluation Re-evalutation: 03/03/17 18:52 Patient is a 51-year-old male who is hemodynamically stable, no acute distress afebrile. X-ray shows evidence of a avulsion and tuft fracture. Subungual hematoma drained at the bedside. Patient instructed on signs and symptoms to be aware of indicating return otherwise patient to keep the site clean, dry and in the splint. Patient will follow up with primary care. Otherwise stable - Vital Signs Vital signs: Temp Pulse Resp BP Pulse Ox 97.6 F 66 18 103/63 99 03/03/17 10:11 03/03/17 10:11 03/03/17 10:11 03/03/17 10:11 03/03/17 10:11 - Diagnostic Test Radiology reviewed: Image reviewed, Reports reviewed Discharge - Discharge Clinical Impression: Closed fracture of tuft of distal phalanx of finger, Subungual hematoma Condition: Good Disposition: HOME, SELF-CARE Instructions: Tuft Fracture of the Finger ([facility]), Subungual Hematoma ([facility]) Forms: Return to Work Referrals: PAXTON VILLANUEVA MD [Primary Care Provider] - Follow up as needed
--- NOTE | 2017-03-03 09:32 | RADIOLOGY REPORT (SQ) ---
EXAM DESCRIPTION: HAND LEFT 3 VIEWS COMPLETED DATE/TIME: 03/03/2017 8:52 am REASON FOR STUDY: trauma, slammed his hand in a car door on thursday COMPARISON: None. EXAM PARAMETERS: NUMBER OF VIEWS: Three views. TECHNIQUE: AP, lateral and oblique radiographic images acquired of the left hand. LIMITATIONS: None. FINDINGS: MINERALIZATION: Normal. BONES: Small fracture fragment off the terminal tuft of the 4th distal phalanx medially. JOINTS: No effusions. SOFT TISSUES: Small linear calcific density adjacent to the mid aspect of the 4th distal phalanx poss ibly small foreign body. Avulsion fracture fragment is felt to be less likely. Small amount of surf iglesia debris adjacent to the 4th PIP joint. OTHER: No other significant finding. IMPRESSION: 1. Small fracture fragment off the terminal tuft of the 4th distal phalanx. 2. Small foreign body versus avulsion fracture fragment along the mid aspect of the 4th distal phala nx. TECHNICAL DOCUMENTATION: JOB ID: [id number] [employer]- All Rights Reserved
[2017-03-03] MEDS ORDERED: DIPH/PERTUSS(ACELL)/TETANUS VAC/PF 0.5 ML SYR (>=10YO) IM ONE (09:44)
[2017-03-03 10:11] VITALS: BP 103/63
== END 2017-03-03 10:11 | disposition home or self-care (01) ==
LOC: ER 08:17
DX: S62.665A Nondisplaced fracture of distal phalanx of left ring finger, initial encounter for closed fracture (principal); S69.92XA Unspecified injury of left wrist, hand and finger(s), initial encounter; W23.1XXA Caught, crushed, jammed, or pinched between stationary objects, initial encounter; Z88.0 Allergy status to penicillin; I50.9 Heart failure, unspecified; I25.10 Atherosclerotic heart disease of native coronary artery without angina pectoris; I11.0 Hypertensive heart disease with heart failure; Z23 Encounter for immunization
CPT/HCPCS: 99283; 90471; 73130; 90715; A9270

== ENCOUNTER 2017-03-04 16:51 | Emergency (ER) | payer MEDICARE, MEDICAID ==
--- NOTE | 2017-03-04 18:11 | ER Document Report ---
HPI - HPI Patient complains to provider of: fingernail bleeding Pain Level: 4 Context: 51 yo male c/o bleeding from left middle fingernail, dressing is saturated. pt was seen yesterday in ED for crush injury, subungal hematoma and tuft fracture. subungal hematoma drained with nail trephanation. Associated Symptoms: None Exacerbated by: Denies Relieved by: Denies Similar symptoms previously: Yes Recently seen / treated by doctor: Yes - yesterday - ROS Systems Reviewed and Negative: Yes All other systems reviewed and negative - CARDIOVASCULAR Cardiovascular: DENIES: Chest pain - DERM Skin Color: Normal Past Medical History - General Information source: Patient - Social History Smoking Status: Never Smoker Chew tobacco use (# tins/day): No Frequency of alcohol use: None Drug Abuse: None Lives with: Family Family History: Reviewed & Not Pertinent, DM Patient has suicidal ideation: No Patient has homicidal ideation: No - Past Medical History Cardiac Medical History: Reports: Hx Congestive Heart Failure, Hx Coronary Artery Disease, Hx Hypertension Pulmonary Medical History: Denies: Hx Asthma, Hx Bronchitis, Hx COPD, Hx Pneumonia Neurological Medical History: Reports: 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 Denies : Hx Cerebrovascular Accident Renal/ Medical History: Denies: Hx Peritoneal Dialysis GI Medical History: Reports: Hx Gastroesophageal Reflux Disease Musculoskeltal Medical History: Reports Hx Arthritis - Left knee & hand, Reports Hx Musculoskeletal Trauma Psychiatric Medical History: Reports: Hx Depression Past Surgical History: Reports: Hx Cardiac Surgery - VSD repair - Immunizations Immunizations up to date: Yes Hx Diphtheria, Pertussis, Tetanus Vaccination: Yes Vertical Provider Document - CONSTITUTIONAL Agree With Documented VS: Yes - INFECTION CONTROL TRAVEL OUTSIDE OF THE [place] IN LAST 30 DAYS: No - HEENT HEENT: Atraumatic, PERRLA - NECK Neck: Normal Inspection, Supple - RESPIRATORY Respiratory: Breath Sounds Normal, No Respiratory Distress O2 Sat by Pulse Oximetry: 99 - CARDIOVASCULAR Cardiovascular: Regular Rate - MUSCULOSKELETAL/EXTREMETIES Musculoskeletal/Extremeties: Tender - left middle fingernail with draining subungal hematoma. nail intact. SMC intact. no s/s infection Course - Re-evaluation Re-evalutation: 03/04/17 18:16 wound cleansed and redressed with xeroform and aluminum finger protection. (pt was splinted from yesterday's visit) pt stable for discharge - Vital Signs Vital signs: Temp Pulse Resp BP Pulse Ox 97.5 F 67 16 123/67 99 03/04/17 17:02 03/04/17 17:02 03/04/17 17:02 03/04/17 17:02 03/04/17 17:02 Discharge - Discharge Clinical Impression: Subungual hematoma of finger of left hand Qualifiers: Encounter type: subsequent encounter Qualified Code(s): S60.10XD - Contusion of unspecified finger with damage to nail, subsequent encounter Condition: Stable Disposition: HOME, SELF-CARE Instructions: Soap Cleansing ([facility]), Temporary Splint ([facility]) Additional Instructions: Your fingernail will continue to bleed slightly until all the blood is gone from under your fingernail change your dressing whenever it gets saturated wash with soap and water, apply xeroform dressing and your finger splint wear finger splint for comfort and protection for next 10 days, longer if you need it
[2017-03-04 18:24] VITALS: BP 130/70
== END 2017-03-04 18:15 | disposition home or self-care (01) ==
LOC: ER 16:51
DX: S62.609A Fracture of unspecified phalanx of unspecified finger, initial encounter for closed fracture (principal); S60.032A Contusion of left middle finger without damage to nail, initial encounter; X58.XXXA Exposure to other specified factors, initial encounter; Z98.890 Other specified postprocedural states; I25.10 Atherosclerotic heart disease of native coronary artery without angina pectoris; I10 Essential (primary) hypertension
CPT/HCPCS: 99282

== ENCOUNTER 2017-08-14 15:41 | Emergency (ER) | payer MEDICARE, MEDICAID ==
--- NOTE | 2017-08-14 17:21 | RADIOLOGY REPORT (SQ) ---
EXAM DESCRIPTION: ELBOW RIGHT OVER 2 VIEWS COMPLETED DATE/TIME: 08/14/2017 5:15 pm REASON FOR STUDY: rt elbow pain COMPARISON: None. NUMBER OF VIEWS: Four views. TECHNIQUE: AP, lateral, and both oblique radiographic images acquired of the right elbow. LIMITATIONS: None. FINDINGS: MINERALIZATION: Normal. BONES: No acute fracture or dislocation. No worrisome bone lesions. JOINT: No effusion. SOFT TISSUES: No soft tissue swelling. No foreign body. OTHER: No other significant finding. IMPRESSION: NEGATIVE STUDY OF THE RIGHT ELBOW. NO RADIOGRAPHIC EVIDENCE OF ACUTE INJURY. TECHNICAL DOCUMENTATION: JOB ID: [id number] [employer]- All Rights Reserved
--- NOTE | 2017-08-14 17:32 | ER Document Report ---
ED General - General Chief Complaint: Arm Pain Stated Complaint: RIGHT ARM PAIN Time Seen by Provider: 08/14/17 17:22 TRAVEL OUTSIDE OF THE [place] 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 Denies : Hx Cerebrovascular Accident Renal/ Medical History: Denies: Hx Peritoneal Dialysis GI Medical History: Reports: Hx Gastroesophageal Reflux Disease Musculoskeltal Medical History: Reports Hx Arthritis - Left knee & hand, Reports Hx Musculoskeletal Trauma Psychiatric Medical History: Reports: Hx Depression Past Surgical History: Reports: Hx Cardiac Surgery - VSD repair - Immunizations Immunizations up to date: Yes Hx Diphtheria, Pertussis, Tetanus Vaccination: Yes Physical Exam - Vital signs Vitals: Temp Pulse Resp Pulse Ox 98.2 F 70 16 98 08/14/17 16:54 08/14/17 16:54 08/14/17 16:54 08/14/17 16:54 Course - Vital Signs Vital signs: Temp Pulse Resp BP Pulse Ox 98.2 F 70 16 98 08/14/17 16:54 08/14/17 16:54 08/14/17 16:54 08/14/17 16:54
--- NOTE | 2017-08-14 17:40 | ER Document Report ---
ED Medical Screen (RME) - General Chief Complaint: Arm Pain Stated Complaint: RIGHT ARM PAIN Time Seen by Provider: 08/14/17 17:22 TRAVEL OUTSIDE OF THE [place] IN LAST 30 DAYS: No - HPI Notes: 08/14/17 17:39 Patient is a 51-year-old male with a history of congestive heart failure, coronary artery disease, hypertension, known heart murmur who presents to the ED with multiple complaints. Patient's most concerning complaint is intermittent chest pressure/tightness that began this morning. Pt is a rather confusing historian so his exact time line is nonspecific of his chest symptoms. Patient states that he will have episodes of this chest pressure that lasts for several minutes and then go away, with the last exacerbation when he was in the waiting room this afternoon. Patient states that he currently does not have any chest pressure is able to ambulate without any difficulties. Patient is not aware of any previous stent placements. Pt states that he has been under a lot of stress lately. Denies any headache, fever, neck pain, URI, sore throat, palpitations, syncope, cough, shortness of breath, wheeze, dyspnea, abdominal pain, nausea/vomiting/diarrhea, urinary retention, dysuria, hematuria, back pain, or rash. pt also c/o occ itching/irritation with the left eye after running out of his antibiotic cream. Pt also c/o rt medial elbow pain w/o known injury. XR was negative. I have treated and performed a rapid initial assessment of this patient. A comprehensive ED assessment and evaluation of the patient, analysis of test results and completion of medical decision making process will be conducted by additional ED providers. PHYSICAL EXAMINATION: GENERAL: Well-appearing, well-nourished and in no acute distress. HEAD: Atraumatic, normocephalic. EYES: Pupils equal round and reactive to light, extraocular movements intact, sclera anicteric, conjunctiva are normal. Chest: non-tender. LUNGS: Breath sounds clear to auscultation bilaterally and equal. No wheezes rales or rhonchi. HEART: Regular rate and rhythm, 2/6 LIBERTAD noted LSB approx. Musculoskeletal: FROM to passive/active. Strength 5+/5. Berto neg. No calf erythema/swelling. Tinel neg to ulnar nerve of right elbow. No obvious deformity, swelling, erythema, warmth, or ecchymosis noted. - Related Data Allergies/Adverse Reactions: Penicillins Allergy (Unknown, Verified 08/14/17 15:42) dog dander Allergy (Verified 08/14/17 15:42) cats Allergy (Uncoded 03/03/17 08:21) Past Medical History - Past Medical History Cardiac Medical History: Reports: Hx Congestive Heart Failure, Hx Coronary Artery Disease, Hx Hypertension Pulmonary Medical History: Denies: Hx Asthma, Hx Bronchitis, Hx COPD, Hx Pneumonia Neurological Medical History: Reports: 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 Denies : Hx Cerebrovascular Accident Renal/ Medical History: Denies: Hx Peritoneal Dialysis GI Medical History: Reports: Hx Gastroesophageal Reflux Disease Musculoskeltal Medical History: Reports Hx Arthritis - Left knee & hand, Reports Hx Musculoskeletal Trauma Psychiatric Medical History: Reports: Hx Depression Past Surgical History: Reports: Hx Cardiac Surgery - VSD repair - Immunizations Immunizations up to date: Yes Hx Diphtheria, Pertussis, Tetanus Vaccination: Yes Physical Exam - Vital signs Vitals: Temp Pulse Resp Pulse Ox 98.2 F 70 16 98 08/14/17 16:54 08/14/17 16:54 08/14/17 16:54 08/14/17 16:54 Course - Vital Signs Vital signs: Temp Pulse Resp BP Pulse Ox 98.2 F 70 16 98 08/14/17 16:54 08/14/17 16:54 08/14/17 16:54 08/14/17 16:54
--- NOTE | 2017-08-14 18:11 | RADIOLOGY REPORT (SQ) ---
EXAM DESCRIPTION: CHEST SINGLE VIEW COMPLETED DATE/TIME: 08/14/2017 6:03 pm REASON FOR STUDY: chest pressure intermittent COMPARISON: 06/15/2016 EXAM PARAMETERS: NUMBER OF VIEWS: One view. TECHNIQUE: Single frontal radiographic view of the chest acquired. RADIATION DOSE: NA LIMITATIONS: None. FINDINGS: LUNGS AND PLEURA: No opacities, masses or pneumothorax. No pleural effusion. MEDIASTINUM AND HILAR STRUCTURES: No masses. Contour normal. HEART AND VASCULAR STRUCTURES: Heart normal in size. Normal vasculature. BONES: No acute findings. HARDWARE: Stable. OTHER: No other significant finding. IMPRESSION: NO ACUTE RADIOGRAPHIC FINDING IN THE CHEST. TECHNICAL DOCUMENTATION: JOB ID: [id number] [employer]- All Rights Reserved
[2017-08-14 18:22] LABS: ABSOLUTE EOSINOPHILS # (AUTO) 0.1 10^3/uL (0.0-0.6); ABSOLUTE MONOCYTES (AUTO) 0.6 10^3/uL (0.1-1.4); ABSOLUTE NEUT (AUTO) 2.4 10^3/uL (1.7-8.2); BASOPHILS % (AUTO) 0.4 % (0-2); EOSINOPHILS % (AUTO) 2.3 % (0-6); HEMATOCRIT 45.5 % (37.9-51.0); HEMOGLOBIN 15.5 g/dL (13.5-17.0); LYMPHOCYTES % (AUTO) 39.5 % (13-45); MEAN CORPUSCULAR HEMOGLOBIN 31.3 pg (27.0-33.4); MEAN CORPUSCULAR HGB CONC 34.1 g/dL (32.0-36.0); MEAN CORPUSCULAR VOLUME 92 fl (80-97); MONOCYTES % (AUTO) 11.1 % (3-13); PLATELET COUNT 263 10^3/uL (150-450); RED BLOOD COUNT 4.97 10^6/uL (4.35-5.55); RED CELL DISTRIBUTION WIDTH 14.3 % (11.5-14.0); SEGMENTED NEUTROPHILS % (AUTO) 46.7 % (42-78); TOTAL CELLS COUNTED % (AUTO) 100 %
--- NOTE | 2017-08-14 18:28 | ER Document Report ---
ED General - General Chief Complaint: Arm Pain Stated Complaint: RIGHT ARM PAIN Time Seen by Provider: 08/14/17 17:22 Cannot obtain history due to: Other - Poor historian Notes: Patient is a 51-year-old male who presents with multiple complaints. Patient states that the main reason for his visit to the emergency department today with concerns regarding right elbow pain. In triage he also noted intermittent chest pain but is unable to characterize how long that chest pain has been going on. He does have a history of coronary artery disease, hypertension and hyperlipidemia. Nothing improves or worsens his chest discomfort. He notes that the right arm pain is located in the elbow and is worsened by repetitive motions of that area. He denies any associated nausea, vomiting, shortness of breath or syncope. He has not seen his primary care doctor regarding his concerns today. TRAVEL OUTSIDE OF THE [place] IN LAST 30 DAYS: No - Related Data Allergies/Adverse Reactions: Penicillins Allergy (Unknown, Verified 08/14/17 18:17) dog dander Allergy (Verified 08/14/17 18:17) cats Allergy (Uncoded 08/14/17 18:17) Past Medical History - General Information source: Patient - Social History Smoking Status: Never Smoker Chew tobacco use (# tins/day): No Frequency of alcohol use: None Drug Abuse: None Lives with: Family Family History: Reviewed & Not Pertinent, DM Patient has suicidal ideation: No Patient has homicidal ideation: No - Past Medical History Cardiac Medical History: Reports: Hx Congestive Heart Failure, Hx Coronary Artery Disease, Hx Hypertension Pulmonary Medical History: Denies: Hx Asthma, Hx Bronchitis, Hx COPD, Hx Pneumonia Neurological Medical History: Reports: 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 Denies : Hx Cerebrovascular Accident Renal/ Medical History: Denies: Hx Peritoneal Dialysis GI Medical History: Reports: Hx Gastroesophageal Reflux Disease Musculoskeltal Medical History: Reports Hx Arthritis - Left knee & hand, Reports Hx Musculoskeletal Trauma Psychiatric Medical History: Reports: Hx Depression Past Surgical History: Reports: Hx Cardiac Surgery - VSD repair - Immunizations Immunizations up to date: Yes Hx Diphtheria, Pertussis, Tetanus Vaccination: Yes Review of Systems - Review of Systems Notes: Constitutional: Negative for fever. HENT: Negative for sore throat. Eyes: Negative for visual changes. Cardiovascular: Positive for chest pain. Respiratory: Negative for shortness of breath. Gastrointestinal: Negative for abdominal pain, vomiting or diarrhea. Genitourinary: Negative for dysuria. Musculoskeletal: Positive for right arm pain Skin: Negative for rash. Neurological: Negative for headaches, weakness or numbness. 10 point ROS negative except as marked above and in HPI. Physical Exam - Vital signs Vitals: Temp Pulse Resp Pulse Ox 98.2 F 70 16 98 08/14/17 16:54 08/14/17 16:54 08/14/17 16:54 08/14/17 16:54 Interpretation: Normal Notes: PHYSICAL EXAMINATION: GENERAL: Well-appearing, well-nourished and in no acute distress. HEAD: Atraumatic, normocephalic. EYES: Pupils equal round and reactive to light, extraocular movements intact, sclera anicteric, conjunctiva are normal. ENT: nares patent, oropharynx clear without exudates. Moist mucous membranes. NECK: Normal range of motion, supple without lymphadenopathy LUNGS: Breath sounds clear to auscultation bilaterally and equal. No wheezes rales or rhonchi. HEART: Regular rate and rhythm without murmurs ABDOMEN: Soft, nontender, normoactive bowel sounds. No guarding, no rebound. No masses appreciated. EXTREMITIES: Normal range of motion, no pitting or edema. No cyanosis. NEUROLOGICAL: No focal neurological deficits. Moves all extremities spontaneously and on command. PSYCH: Normal mood, normal affect. SKIN: Warm, Dry, normal turgor, no rashes or lesions noted. Course - Re-evaluation Re-evalutation: 08/14/17 18:25 Patient presents with multiple vague complaints that did not appear to be concerning for any acute life-threatening pathology. Vitals are within normal limits at triage and at time of discharge. Physical examination is unremarkable. Patient has tolerated oral intake without difficulty. Patient was not noted to be in distress at any point during their ER visit. At this time, based on the reassuring evaluation, I do not suspect an acute ME, pulmonary embolus, aortic dissection, acute intra-abdominal pathology, stroke, or sepsis. Patient apparently complained of chest pain but denies this complaint to me. Multitude of patient's complaints did not appear at all concerning for any acute cardiac pathology. EKG and troponin negative. X-ray of the patient's right elbow where he was complaining of pain is unremarkable. Labs broadly unremarkable. Will discharge with return precautions and follow- up recommendations. Verbal discharge instructions given a the bedside and opportunity for questions given. Medication warnings reviewed. Patient is in agreement with this plan and has verbalized understanding of return precautions and the need for primary care follow-up in the next 24-72 hours. - Vital Signs Vital signs: Temp Pulse Resp BP Pulse Ox 98.2 F 70 21 H 134/84 H 98 08/14/17 16:54 08/14/17 16:54 08/14/17 19:40 08/14/17 19:40 08/14/17 19:40 - Laboratory Result Diagrams: 08/14/17 18:09 08/14/17 18:09 Laboratory results interpreted by me: 08/14/17 08/14/17 18:09 18:09 RDW 14.3 H Carbon Dioxide 31 H Total Bilirubin 1.8 H Creatine Kinase 181 H - Diagnostic Test Radiology reviewed: Image reviewed, Reports reviewed Radiology results interpreted by me: 08/14/17 18:26 Chest x-ray: No acute infiltrate or pneumothorax Right elbow: No acute fracture or dislocation - EKG Interpretation by Me Additional EKG results interpreted by me: 08/14/17 18:27 Sinus rhythm. Rate 75. No ST elevations or depressions. QTC is 429. Discharge - Discharge Clinical Impression: Multiple complaints, Chest wall pain, Right elbow pain Condition: Good Disposition: HOME, SELF-CARE Additional Instructions: Please return to the emergency room immediately if you experience any concerning symptoms including high fevers, severe headache, chest pain, difficulty breathing, abdominal pain, slurred speech, numbness or weakness in your arms or legs, or any other symptom that concerns you. Referrals: PAXTON VILLANUEVA MD [Primary Care Provider] - Follow up in 3-5 days
[2017-08-14 18:43] LABS: ALANINE AMINOTRANSFERASE 35 U/L (21-72); ALBUMIN 4.9 g/dL (3.5-5.0); ALKALINE PHOSPHATASE 58 U/L (38-126); ANION GAP 10 (5-19); ASPARTATE AMINO TRANSFERASE 45 U/L (17-59); BILIRUBIN,DIRECT 0.3 mg/dL (0.0-0.4); BILIRUBIN,TOTAL 1.8 mg/dL (0.2-1.3); BLOOD UREA NITROGEN 13 mg/dL (7-20); CALCIUM 10.1 mg/dL (8.4-10.2); CARBON DIOXIDE 31 mmol/L (22-30); CHLORIDE 101 mmol/L (98-107); CREATINE KINASE 181 U/L (55-170); GLUCOSE 79 mg/dL (75-110); POTASSIUM 3.7 mmol/L (3.6-5.0); SODIUM 142.3 mmol/L (137-145); TOTAL PROTEIN 8.2 g/dL (6.3-8.2)
[2017-08-14 18:55] LABS: CREATINE KINASE MB 4.37 ng/mL (<4.55)
[2017-08-14 18:57] LABS: TROPONIN I < 0.012 ng/mL
[2017-08-14 20:01] VITALS: BP 134/84
--- NOTE | 2017-08-15 10:17 | EKG REPORT ---
SEVERITY:- NORMAL ECG - SINUS RHYTHM : Confirmed by: Josse Chi 15-Aug-2017 10:17:12
== END 2017-08-14 19:50 | disposition home or self-care (01) ==
LOC: ER 15:41
DX: M25.521 Pain in right elbow (principal); R07.89 Other chest pain; I25.10 Atherosclerotic heart disease of native coronary artery without angina pectoris; I10 Essential (primary) hypertension; Z88.0 Allergy status to penicillin; Z91.048 Other nonmedicinal substance allergy status
CPT/HCPCS: 36415; 71045; 80053; 82550; 82553; 84484; 85025; 93005; 93010; 99284

== ENCOUNTER 2017-10-11 13:26 | Emergency (ER) | payer MEDICARE, MEDICAID ==
[2017-10-11 13:47] VITALS: BP 129/74
--- NOTE | 2017-10-11 14:15 | ER Document Report ---
HPI - HPI Patient complains to provider of: cough, congestion for two weeks Onset: Other Onset/Duration: Gradual Quality of pain: Achy Severity: Mild Pain Level: 2 Context: Patient states he has had cough and congestion 2 weeks. He has been taking Robitussin-DM without relief of symptoms. Denies fever, but states he felt hot. Associated Symptoms: Nonproductive cough, Earache, Fever, Sinus pain/drainage Exacerbated by: Denies Relieved by: Denies Similar symptoms previously: Yes Recently seen / treated by doctor: No - ROS ROS below otherwise negative: Yes Systems Reviewed and Negative: Yes All other systems reviewed and negative - CONSTITUTIONAL Constitutional: REPORTS: Fever - EENT EENT: REPORTS: Sore Throat, Nasal Drainage-Purulent, Congestion - NEURO Neurology: DENIES: Headache - CARDIOVASCULAR Cardiovascular: DENIES: Chest pain - RESPIRATORY Respiratory: REPORTS: Coughing. DENIES: Trouble Breathing - GASTROINTESTINAL Gastrointestinal: DENIES: Abdominal Pain - DERM Skin Color: Normal Skin Problems: None Past Medical History - General Information source: Patient - Social History Smoking Status: Never Smoker Frequency of alcohol use: None Drug Abuse: None Lives with: Family Family History: Reviewed & Not Pertinent, DM - Past Medical History Cardiac Medical History: Reports: Hx Congestive Heart Failure, Hx Coronary Artery Disease, Hx Hypertension Neurological Medical History: Reports: Hx Seizures - [place] 1971 during ASD GI Medical History: Reports: Hx Gastroesophageal Reflux Disease Musculoskeltal Medical History: Reports Hx Arthritis - Left knee & hand, Reports Hx Musculoskeletal Trauma Psychiatric Medical History: Reports: Hx Depression Past Surgical History: Reports: Hx Cardiac Surgery - VSD repair - Immunizations Immunizations up to date: Yes Hx Diphtheria, Pertussis, Tetanus Vaccination: Yes Vertical Provider Document - CONSTITUTIONAL Agree With Documented VS: Yes General Appearance: WD/WN, No Apparent Distress - INFECTION CONTROL TRAVEL OUTSIDE OF THE [place] IN LAST 30 DAYS: No - HEENT HEENT: Atraumatic, Normocephalic Notes: TMs dull bilaterally, no sinus tenderness, throat normal. - NECK Neck: Normal Inspection - RESPIRATORY Respiratory: Breath Sounds Normal, No Respiratory Distress O2 Sat by Pulse Oximetry: 97 - CARDIOVASCULAR Cardiovascular: Regular Rate - MUSCULOSKELETAL/EXTREMETIES Musculoskeletal/Extremeties: MAEW - NEURO Level of Consciousness: Awake, Alert, Appropriate - DERM Integumentary: Warm, Dry Course - Vital Signs Vital signs: Temp Pulse Resp BP Pulse Ox 97.7 F 63 16 129/74 H 97 10/11/17 13:46 10/11/17 13:46 10/11/17 13:46 10/11/17 13:46 10/11/17 13:46 Discharge - Discharge Clinical Impression: Congestion of upper airway, Cough Condition: Good Disposition: HOME, SELF-CARE Additional Instructions: Meds as prescribed Tylenol as needed Follow-up with your doctor for recheck this week Return as needed Prescriptions: Benzonatate [Tessalon Perle 100 mg Capsule] 100 mg PO Q8HP PRN #30 cap PRN Reason: Fluticasone Propionate [Flonase Allergy Relief] 15.8 ml NS DAILY #1 spray.susp Referrals: PAXTON VILLANUEVA MD [Primary Care Provider] - Follow up as needed
== END 2017-10-11 14:25 | disposition home or self-care (01) ==
LOC: ER 13:26
DX: R05 Cough (principal); R09.89 Other specified symptoms and signs involving the circulatory and respiratory systems; H92.09 Otalgia, unspecified ear; J34.89 Other specified disorders of nose and nasal sinuses; J02.9 Acute pharyngitis, unspecified; I10 Essential (primary) hypertension; I25.2 Old myocardial infarction
CPT/HCPCS: 99283

== ENCOUNTER → 2017-10-21 | Outpatient (CLI) | payer MEDICARE, MEDICAID ==
--- NOTE | 2017-10-21 13:42 | RADIOLOGY REPORT (SQ) ---
EXAM DESCRIPTION: VENOUS BILATERAL LOWER COMPLETED DATE/TIME: 10/21/2017 12:20 pm REASON FOR STUDY: LE PAIN/EDEMA R60.0 LOCALIZED EDEMA M79.606 PAIN IN LEG, UNSPECIFIED COMPARISON: None. TECHNIQUE: Dynamic and static medeiros scale and color images acquired of both lower extremity venous sy stems. Selected spectral images acquired with additional compression and augmentation maneuvers. Imag es stored on PACS. LIMITATIONS: None. FINDINGS: RIGHT LEG COMMON FEMORAL AND FEMORAL: Normal phasicity, compression and augmentation. No visualized echogenic m aterial on medeiros scale. No defects on color images. POPLITEAL: Normal compression and augmentation. No visualized echogenic material on medeiros scale. No de fects on color images. CALF VESSELS: Normal compression and augmentation. No visualized echogenic material on medeiros scale. No defects on color image. GSV AND SSV: Normal compression. No visualized echogenic material on medeiros scale. No defects on color images. ANY DEEP VENOUS INSUFFICIENCY: No. ANY EVIDENCE OF POPLITEAL CYST: No. OTHER: No other significant finding. LEFT LEG COMMON FEMORAL AND FEMORAL: Normal phasicity, compression and augmentation. No visualized echogenic m aterial on medeiros scale. No defects on color images. POPLITEAL: Normal compression and augmentation. No visualized echogenic material on medeiros scale. No de fects on color images. CALF VESSELS: Normal compression and augmentation. No visualized echogenic material on medeiros scale. No defects on color images. GSV AND SSV: Normal compression. No visualized echogenic material on medeiros scale. No defects on color images. ANY DEEP VENOUS INSUFFICIENCY: No. ANY EVIDENCE POPLITEAL CYST: No. OTHER: No other significant finding. IMPRESSION: NO EVIDENCE DVT OR SVT IN EITHER LEG. TECHNICAL DOCUMENTATION: JOB ID: [id number] [employer]- All Rights Reserved Reading location - IP/workstation name: [email or web address]
== END ==
LOC: SP 10:17
PROVIDERS: ATTEND Physician Assistant Medical
DX: M79.662 Pain in left lower leg (principal); M79.661 Pain in right lower leg; R60.0 Localized edema
CPT/HCPCS: 93970

== ENCOUNTER 2018-08-26 12:25 | Emergency (ER) | payer MEDICARE, MEDICAID ==
[2018-08-26 12:31] VITALS: BP 126/77
[2018-08-26] MEDS ORDERED: LIDOCAINE 5% (700 MG) TRANSDERMAL ADH..PATCH TP ONE (12:48)
--- NOTE | 2018-08-26 12:48 | ER Document Report ---
Addendum entered and electronically signed by WSE NUNEZ PA-C 08/26/18 14:19: Discharge - Discharge Clinical Impression: Rib pain on right side Condition: Stable Disposition: HOME, SELF-CARE Instructions: Chest Wall Pain ([facility]), Rib Contusion ([facility]) Additional Instructions: Rest, Ice Tylenol/ibuprofen as needed Light stretches daily Strength exercises as able Moist heat and massage may help F/u with your PCP in 2-3 days for a recheck Consider consult(s) with Orthopedics/physical therapy for ongoing/worsening symptoms Return to the ED with any worsening symptoms and/or development of fever, hea dache, chest pain, palpitations, syncope, shortness of breath, trouble breathing, abdominal pain, n/v/d, muscle weakness/paralysis, numbness/tingling, swelling, redness, or other worsening symptoms that are concerning to you. Prescriptions: Naproxen 500 mg PO BID #10 tablet Forms: Elevated Blood Pressure Referrals: CHUY ARAYA PA-C [Primary Care Provider] - Follow up as needed Original Note: HPI - HPI Time Seen by Provider: 08/26/18 12:33 Pain Level: 4 Notes: Patient is a 52-year-old male who presents the emergency department complaining of right anterior lower rib pain and pressure status post injury 2 days ago. Patient states that he tripped and fell directly on his stomach/chest. Patient states he did not have immediate pain, but had pain develop thereafter. The pain does not radiate. Most of the pain is described as sharp in nature and worse with pushing on his chest/ribs. He is eating and drinking without difficulty. He is urinating normally and having normal bowel movements. No other concerns or complaints. Patient states that he is able to ambulate walk and run without any dyspnea on exertion or worsening pain. No other concerns or complaints at this time. Denies any headache, fever, neck pain, URI, sore throat, palpitations, syncope, cough, shortness of breath, wheeze, dyspnea, abdominal pain, nausea/vomiting/diarrhea, urinary retention, dysuria, hematuria, loss of control of bowel or bladder, numbness/tingling, saddle anesthesia, muscle paralysis/weakness, or rash. 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 Denies: Hx Cerebrovascular Accident Renal/ Medical History: Denies: Hx Peritoneal Dialysis GI Medical History: Reports: Hx Gastroesophageal Reflux Disease Musculoskeletal Medical History: Reports Hx Arthritis - Left knee & hand, Reports Hx Musculoskeletal Trauma Psychiatric Medical History: Reports: Hx Depression Past Surgical History: Reports: Hx Cardiac Surgery - VSD repair - Immunizations Immunizations up to date: Yes Hx Diphtheria, Pertussis, Tetanus Vaccination: Yes Vertical Provider Document - CONSTITUTIONAL Agree With Documented VS: Yes Notes: PHYSICAL EXAMINATION: GENERAL: Well-appearing, well-nourished and in no acute distress. HEAD: Atraumatic, normocephalic. EYES: Pupils equal round and reactive to light, extraocular movements intact, sclera anicteric, conjunctiva are normal. ENT: Nares patent and without discharge. oropharynx clear without exudates. N o tonsilar hypertrophy or erythema. Moist mucous membranes. NECK: Normal range of motion, supple without lymphadenopathy Chest: + reproducible mild tenderness to palpation of the rt anterior lower ribs reproducible with arm extension/abduction. No flail chest or ecchymosis. LUNGS: Breath sounds clear to auscultation bilaterally and equal. No wheezes rales or rhonchi. HEART: Regular rate and rhythm without murmurs, rubs, gallops. ABDOMEN: Soft, nontender, nondistended abdomen. No guarding, no rebound. No masses appreciated. Normal bowel sounds present. No CVA tenderness bilaterall y. No ecchymosis. Camp negative. Musculoskeletal: FROM to passive/active. Strength 5+/5. Berot neg. No asymmetry to LE's. Extremities: No cyanosis, clubbing, or edema b/l. Peripheral pulses 2+. Capillary refill less than 3 seconds. NEUROLOGICAL: Normal speech, normal gait. PSYCH: Normal mood, normal affect. SKIN: Warm, Dry, normal turgor, no rashes or lesions noted. - INFECTION CONTROL TRAVEL OUTSIDE OF THE [place] IN LAST 30 DAYS: No Course - Re-evaluation Re-evalutation: 08/26/18 14:14 Patient is an afebrile, well-hydrated 52-year-old male who presents to the ED with rib pain, suspect contusion. Vitals are acceptable without any significant tachycardia, tachypnea, or hypoxia. PE is otherwise unremarkable aside from the reproducible lateral lower Rib tenderness. Patient is nontoxic-appearing and is tolerating p.o. without any difficulties. Pt is currently asymptomatic. EKG/cardiac enzymes, chest/rib x-ray are all unremarkable for any acute pathology. Patient has a heart score of 2, Wells score of 0. Patient does not have any chest pain, dyspnea, or shortness of breath. He has not had any strong symptomatology for cardiac etiology as his symptoms began after he fell on his chest/ribs and are reproducible. Patient's presentation and symptomatology creates low suspicion for ACS, PE, pneumothorax, pericarditis, dissection, respiratory compromise, severe dehydration, sepsis, meningitis, or other systemic emergent condition at this time. Patient is aware that his condition can change from initial presentation and he needs to monitor symptoms closely and seek medical attention for any acute changes. Pt is feeling better and would like to go home. Recommend conservative measures for symptoms. Recheck with your PCM in 2-3 days. Return to the ED with any worsening/concerning symptoms otherwise as reviewed in discharge. Patient is in agreement. - Vital Signs Vital signs: Temp Pulse Resp BP Pulse Ox 98.5 F 75 14 126/77 H 97 08/26/18 12:30 08/26/18 12:30 08/26/18 12:30 08/26/18 12:30 08/26/18 12:30 Discharge - Discharge Clinical Impression: Rib pain on right side Condition: Stable Disposition: HOME, SELF-CARE Instructions: Chest Wall Pain ([facility]), Rib Contusion ([facility]) Additional Instructions: Rest, Ice Tylenol/ibuprofen as needed Light stretches daily Strength exercises as able Moist heat and massage may help F/u with your PCP in 2-3 days for a recheck Consider consult(s) with Orthopedics/physical therapy for ongoing/worsening symptoms Return to the ED with any worsening symptoms and/or development of fever, headache, chest pain, palpitations, syncope, shortness of breath, trouble breathing, abdominal pain, n/v/d, muscle weakness/paralysis, numbness/tingling, swelling, redness, or other worsening symptoms that are concerning to you. Forms: Elevated Blood Pressure Referrals: CHUY ARAYA PA-C [Primary Care Provider] - Follow up as needed
--- NOTE | 2018-08-26 13:40 | RADIOLOGY REPORT (SQ) ---
EXAM DESCRIPTION: RIBS RIGHT W/PA CHEST COMPLETED DATE/TIME: 08/26/2018 1:27 pm REASON FOR STUDY: pain s/p fall rt anterolower ribs COMPARISON: None. TECHNIQUE: Frontal view of the chest and additional views of the right ribs acquired. NUMBER OF VIEWS: Four views LIMITATIONS: None. FINDINGS: FRONTAL CXR: No pneumothorax. No pleural effusion. No atelectasis or infiltrates. RIBS: No displaced rib fractures. No lytic or blastic bony lesions. OTHER: No other significant finding. IMPRESSION: NO PNEUMOTHORAX. NO DISPLACED RIB FRACTURES. COMMENT: SITE OF TRAUMA/COMPLAINT MARKED/STAMP COMPLETED: No TECHNICAL DOCUMENTATION: JOB ID: [id number] [employer]- All Rights Reserved Reading location - IP/workstation name: [email or web address]
== END 2018-08-26 14:23 | disposition home or self-care (01) ==
LOC: ER 12:25
DX: R07.81 Pleurodynia (principal); W19.XXXA Unspecified fall, initial encounter; Y92.009 Unspecified place in unspecified non-institutional (private) residence as the place of occurrence of the external cause; I25.10 Atherosclerotic heart disease of native coronary artery without angina pectoris; I10 Essential (primary) hypertension
CPT/HCPCS: 36415; 84484; 99283

== ENCOUNTER 2018-10-25 09:42 | Day surgery (SDC) | payer MEDICARE, MEDICAID ==
[2018-10-22 10:05] LABS: HEMATOCRIT 43.1 % (37.9-51.0); MEAN CORPUSCULAR HEMOGLOBIN 31.2 pg (27.0-33.4); MEAN CORPUSCULAR HGB CONC 34.7 g/dL (32.0-36.0); MEAN CORPUSCULAR VOLUME 90 fl (80-97); PLATELET COUNT 269 10^3/uL (150-450); RED BLOOD COUNT 4.79 10^6/uL (4.35-5.55); RED CELL DISTRIBUTION WIDTH 13.8 % (11.5-14.0); WHITE BLOOD COUNT 4.7 10^3/uL (4.0-10.5)
[2018-10-22 10:30] LABS: ANION GAP 11 (5-19); BLOOD UREA NITROGEN 23 mg/dL (7-20); CARBON DIOXIDE 29 mmol/L (22-30); CHLORIDE 99 mmol/L (98-107); GLUCOSE 92 mg/dL (75-110); POTASSIUM 3.8 mmol/L (3.6-5.0); SODIUM 138.6 mmol/L (137-145)
--- NOTE | 2018-10-22 12:15 | RADIOLOGY REPORT (SQ) ---
EXAM DESCRIPTION: CHEST PA/LATERAL COMPLETED DATE/TIME: 10/22/2018 11:48 am REASON FOR STUDY: PRE-OP COMPARISON: None. EXAM PARAMETERS: NUMBER OF VIEWS: two views TECHNIQUE: Digital Frontal and Lateral radiographic views of the chest acquired. RADIATION DOSE: NA LIMITATIONS: none FINDINGS: LUNGS AND PLEURA: No opacities, masses or pneumothorax. No pleural effusion. MEDIASTINUM AND HILAR STRUCTURES: No masses or contour abnormalities. HEART AND VASCULAR STRUCTURES: Heart normal size. No evidence for failure. BONES: No acute findings. HARDWARE: Sternotomy wires. OTHER: No other significant finding. IMPRESSION: NO SIGNIFICANT RADIOGRAPHIC FINDING IN THE CHEST. TECHNICAL DOCUMENTATION: JOB ID: [id number] [employer]- All Rights Reserved Reading location - IP/workstation name: [email or web address]
--- NOTE | 2018-10-22 20:52 | EKG REPORT ---
SEVERITY:- NORMAL ECG - SINUS RHYTHM : Confirmed by: Ira Fernández MD 22-Oct-2018 20:51:45
[~2018-10-25 09:42] MED LIST changes: +1/2 NORMAL SALINE 1,000 ML IV PRN; -BACITRACIN INJ 50,000 UNIT VIAL ONE; -BUPIVACAINE HCL 0.25 % INJ/PF (2.5 MG/1 ML) 30 ML VIAL ONE; -LACTATED RINGERS 1000 ML IV PRN; -LIDOCAINE 0.5% INJ-PF (5 MG/ML) 50 ML SDV ONE
[2018-10-25] MEDS ORDERED: CLINDAMYCIN 600 MG/D5W RTU 600 MG/50 ML RTUPB IV ONE (09:54)
[2018-10-25] MEDS ORDERED: LIDOCAINE 0.5% INJ-PF (5 MG/ML) 50 ML SDV ONE (10:15)
[2018-10-25] MEDS ORDERED: BUPIVACAINE HCL 0.25 % INJ/PF (2.5 MG/1 ML) 30 ML VIAL ONE (10:15)
[2018-10-25] MEDS ORDERED: ROCURONIUM BROMIDE INJ 50 MG/5 ML VIAL IV ONE (10:41)
[2018-10-25] MEDS ORDERED: SUCCINYLCHOLINE CHLORIDE INJ 200 MG/10 ML VIAL ONE (10:41)
[2018-10-25] MEDS ORDERED: BACITRACIN INJ 50,000 UNIT VIAL ONE (13:41)
[2018-10-25] MEDS ORDERED: FENTANYL CITRATE INJ/PF 100 MCG/2 ML AMPUL ONE (14:15)
[2018-10-25] MEDS ORDERED: ONDANSETRON HCL INJ/PF 4 MG/2 ML SDV ONE (14:15)
[2018-10-25] MEDS ORDERED: HYDROMORPHONE HCL INJ/PF 2 MG/ML AMPULE ONE (14:15)
[2018-10-25] MEDS ORDERED: PROPOFOL INJ 200 MG/20 ML VIAL IV ONE (14:15)
[2018-10-25] MEDS ORDERED: DEXAMETHASONE SOD PHOSPHATE INJ 4 MG/1 ML VIAL ONE (14:15)
[2018-10-25] MEDS ORDERED: MIDAZOLAM 2 MG/2 ML INJ ONE (14:15)
[2018-10-25] MEDS ORDERED: EPHEDRINE SULFATE INJ 50 MG/1 ML AMPULE ONE (14:16)
[2018-10-25] MEDS ORDERED: ACETAMINOPHEN 1,000 MG/100 ML RTUPB IV ONE (14:16)
[2018-10-25] MEDS ORDERED: FENTANYL CITRATE INJ/PF 100 MCG/2 ML AMPUL IV PRN ×3 (14:40)
[2018-10-25] MEDS ORDERED: MEPERIDINE HCL/PF INJ 25 MG/1 ML DISP.SYRIN IV PRN (14:40)
[2018-10-25] MEDS ORDERED: MORPHINE SULFATE 10 MG/ML INJ IV PRN (14:40)
[2018-10-25] MEDS ORDERED: PROMETHAZINE HCL INJ 25 MG/1 ML VIAL IV PRN ×2 (14:40)
[2018-10-25] MEDS ORDERED: DIPHENHYDRAMINE HCL 50 MG/ML VIAL IV PRN (14:40)
--- NOTE | 2018-10-25 16:40 | Discharge Summary ---
Discharge Summary (SDC) - Discharge Final Diagnosis: #1 symptomatic right inguinal hernia. 2. Hypertension. Date of Surgery: 10/25/18 Discharge Date: 10/25/18 Condition: Good Treatment or Instructions: Discharge home [tomorrow morning. Diet , as tolerated, when fully awake advance as tolerated. Activities within moderation encouraged. No lifting over 10 pounds. Walking encouraged. Activity level of running to hold off for 2 weeks Follow up in my office by appointment in about [1 week]. Call for appointment. Leave wounds [covered], [keep clean and dry, until office visit in 1 week]. Hold of on school/work [until evaluation in office]. Meds per med rec. Percocet. May shower [in 48 hrs], [try to keep operated area as dry as possible]. Prescriptions: Oxycodone HCl/Acetaminophen [Percocet 5-325 mg Tablet] 1 tab PO ASDIR PRN #15 tab PRN Reason: Referrals: PAXTON VILLANUEVA MD [Primary Care Provider] - Discharge Diet: Regular Respiratory Treatments at Home: Deep Breathing/Coughing Discharge Activity: Activity As Tolerated Report the Following to Your Physician Immediately: Shortness of Breath, Unusual Bleeding
--- NOTE | 2018-10-25 16:45 | Operative Report ---
Operative Report DATE OF SURGERY: 10/25/18 PREOPERATIVE DIAGNOSIS: #1 symptomatic right inguinal hernia. 2. Hypertension. POSTOPERATIVE DIAGNOSIS: #1 symptomatic right inguinal hernia. 2. Hypertension. OPERATION: , Repair of right inguinal hernia with mesh. SURGEON: RAJIV GIBBS WOOLEN SUITING SHRINKER: None. TISSUE REMOVED OR ALTERED: Not applicable. COMPLICATIONS: None. ESTIMATED BLOOD LOSS: 10 mL. INTRAOPERATIVE FINDINGS: Of a well-defined indirect inguinal hernia sac. Quite tenuous and densely adherent to the surrounding fatty tissues. Separation from the overlying tissues particularly in the upper portion of challenging superiorly. The sac was entered during dissection this was. During the process of hernia repair. A nice retroperitoneal dissection was eventually accomplished so that mesh could be placed beneath the muscle superiorly, laterally and over the iliac vessels inferiorly. The external portion was placed: Muscles between the internal and external muscles and affixed in the usual fashion. PROCEDURE: After obtaining informed consent and going over the procedure with [the patient ], he was taken to the operating room, he was anesthetized and intubated. The abdomen was prepped and draped in the usual sterile fashion. After the universal timeout, in which it was verified that the patient received IV antibiotic, the procedure commenced. A transverse incision was made in the right lower abdomen abdominal, groin area, just above the pubic tubercle. 6 cm in length.Local, regional anesthesia was infiltrated, just before incision.. Incision was made with a [15 blade scalpel]. Dissection now proceeded through the subcutaneous tissue down to the external oblique aponeurosis. The external ring was identified and the external oblique opened in the line of its fibers. The inguinal canal was thus displayed. Dissection was facilitated by the use a headlight and using loupe magnification. The spermatic cord was dissected off the pubic tubercle and surrounded with a moist [place]burne drain, the cremasteric fascia was now incised longitudinally revealing the contents of the spermatic cord. The sac was readily evident and this was grasped with a hemostat. It was now dissected in a retrograde fashion into the retroperitoneal space. It was now reduced within the the preperitoneal space. The sac was entered during dissection and this was repaired with a continuous suture of 3-0 PDS. The preperitoneal space was now developed circumferentially. It easily accommodated a sponge which was removed. Hemostasis was checked for and ensured there in. The space between the external and internal oblique aponeuroses was now developed to accommodate the external portion of the mesh. Having done so a Prolene hernia system mesh was now folded, in the research agricultural engineer's approved fashion and inserted into the preperitoneal space. The internal portion was deployed flat in the preperitoneal space the external portion was unfolded and tucked beneath the external oblique. Secured with a 0 PDS suture to the internal oblique superiorly, the fascia adjacent to the pubic tubercle medially, inferiorly it was split up to the connector, the the split mesh was now used to surround the spermatic cord. It was reapproximated with a suture of 0 PDS. 0 PDS was now used to approximate the inferior border of the mesh to the shelving edge of Poupart's ligament with a single suture. Laterally the mesh was tucked beneath the external oblique. The external oblique was now reconstituted using a continuous suture of 3-0 PDS. 3-0 PDS interrupted sutures were used to approximate the subcutaneous tissues after removing the [place] drain. The skin was closed using a continuous subcuticular suture of 4-0 Monocryl reinforced with Steri-Strips over benzoin. Copies dictated operative report to Dr. Rajiv Christensen MD.
[2018-10-25] MEDS ORDERED: DEXTROSE 5%-1/2 NORMAL SALINE 1,000 ML IV PRN (17:38)
[2018-10-25] MEDS ORDERED: OXYCODONE-ACETAMINOPHEN 5-325 MG TABLET PO PRN (17:38)
[2018-10-26 18:43] VITALS: BP 138/82
== END 2018-10-26 18:30 | disposition home or self-care (01) ==
LOC: OROUT 09:42 → 5 18:34 → OROUT 10-26 18:30
PROVIDERS: ATTEND Surgery
DX: K40.90 Unilateral inguinal hernia, without obstruction or gangrene, not specified as recurrent (principal); I10 Essential (primary) hypertension; J45.909 Unspecified asthma, uncomplicated; Z88.0 Allergy status to penicillin; Z87.891 Personal history of nicotine dependence; Z79.899 Other long term (current) drug therapy; Z79.51 Long term (current) use of inhaled steroids
CPT/HCPCS: 93005; 36415 ×2; 84132; 85027; 80048; 71046; 93010; 49505; C1781; J2250; J3490 ×3; J1100; J3010; A9270; J1170; J0330; J2405; J2704; J0131; 830

== ENCOUNTER 2018-11-18 14:45 | Emergency (ER) | payer MEDICARE, MEDICAID ==
[2018-11-18 15:08] VITALS: BP 138/78
[2018-11-18] MEDS ORDERED: SULFAMETHOXAZOLE/TRIMETHOPRIM 800-160 MG TABLET PO ONE (15:31)
--- NOTE | 2018-11-18 15:34 | ER Document Report ---
HPI - HPI Patient complains to provider of: Right hand pain Time Seen by Provider: 11/18/18 15:14 Onset: Yesterday Quality of pain: Achy Pain Level: 1 Context: Patient presents complaining of pain to the right hand and a area that seems to be buttonhole tacker in color. Patient states that he was doing some cleaning recently and was picking up and tossing things in the trash recently. Patient is unc ertain if he may have gotten a splinter in his right hand. Associated Symptoms: Other - Right hand pain Exacerbated by: Movement Relieved by: Denies Similar symptoms previously: No Recently seen / treated by doctor: No - ROS ROS below otherwise negative: Yes Systems Reviewed and Negative: Yes All other systems reviewed and negative - CONSTITUTIONAL Constitutional: DENIES: Fever, Chills - MUSCULOSKELETAL Musculoskeletal: REPORTS: Extremity pain - DERM Skin Color: Other - Discoloration surrounding tender area Skin Problems: Puncture Wound - Possible puncture wound to hand Past Medical History - General Information source: Patient - Social History Smoking Status: Never Smoker Frequency of alcohol use: None Drug Abuse: None Family History: Reviewed & Not Pertinent, DM - Past Medical History Cardiac Medical History: Reports: Hx Congestive Heart Failure, Hx Coronary Artery Disease, Hx Hypertension Pulmonary Medical History: Denies: Hx Asthma, Hx Bronchitis, Hx COPD, Hx Pneumonia Neurological Medical History: Reports: 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 Denies: Hx Cerebrovascular Accident Renal/ Medical History: Denies: Hx Peritoneal Dialysis GI Medical History: Reports: Hx Gastroesophageal Reflux Disease Musculoskeletal Medical History: Reports Hx Arthritis - Left knee & hand, Reports Hx Musculoskeletal Trauma Psychiatric Medical History: Reports: Hx Depression Past Surgical History: Reports: Hx Cardiac Surgery - VSD repair - Immunizations Immunizations up to date: Yes Hx Diphtheria, Pertussis, Tetanus Vaccination: Yes Vertical Provider Document - CONSTITUTIONAL Agree With Documented VS: Yes Exam Limitations: No Limitations General Appearance: WD/WN, No Apparent Distress - INFECTION CONTROL TRAVEL OUTSIDE OF THE [place] IN LAST 30 DAYS: No - HEENT HEENT: Atraumatic, Normocephalic - NECK Neck: Normal Inspection - RESPIRATORY Respiratory: Breath Sounds Normal, No Respiratory Distress - CARDIOVASCULAR Cardiovascular: Regular Rate, Regular Rhythm Pulses: Normal: Radial - MUSCULOSKELETAL/EXTREMETIES Musculoskeletal/Extremeties: MAEW - NEURO Level of Consciousness: Awake, Alert, Appropriate Motor/Sensory: No Motor Deficit - DERM Integumentary: Warm, Dry Notes: Tenderness to palmar surface of right hand thenar eminence with what appears to be a subcutaneous foreign body Course - Re-evaluation Re-evalutation: 11/18/18 15:32 With use of 18-gauge needle surface of area of tenderness was scraped and very fine splinter was removed. Patient did have some purulent drainage as well. Pt reports hand feels better after splinter removal. - Vital Signs Vital signs: Temp Pulse Resp BP Pulse Ox 98.1 F 70 14 138/78 H 98 11/18/18 15:07 11/18/18 15:07 11/18/18 15:07 11/18/18 15:07 11/18/18 15:07 Discharge - Discharge Clinical Impression: Splinter in skin Condition: Stable Disposition: HOME, SELF-CARE Instructions: Removal of Subcutaneous Foreign Object ([facility]), Trimethoprim-Sulfa ([facility]) Additional Instructions: Return immediately for any new or worsening symptoms Followup with your primary care provider, call tomorrow to make a followup appointment Soak hand in warm soapy water 3 times a day Monitor for any signs of infection including increased pain, redness, streaks, p urulent drainage or any concerning symptoms. Prescriptions: Sulfamethoxazole/Trimethoprim [Bactrim Ds Tablet] 1 each PO BID #10 tablet Referrals: PAXTON VILLANUEVA MD [Primary Care Provider] - Follow up as needed
== END 2018-11-18 15:43 | disposition home or self-care (01) ==
LOC: ER 14:45
DX: S60.551A Superficial foreign body of right hand, initial encounter (principal); M79.641 Pain in right hand; W45.8XXA Other foreign body or object entering through skin, initial encounter; I25.10 Atherosclerotic heart disease of native coronary artery without angina pectoris; I10 Essential (primary) hypertension
CPT/HCPCS: 99283; A9270

== ENCOUNTER → 2019-01-04 | Outpatient (CLI) | payer MEDICARE, MEDICAID ==
--- NOTE | 2019-01-04 12:01 | RADIOLOGY REPORT (SQ) ---
EXAM DESCRIPTION: FOREARM LEFT COMPLETED DATE/TIME: 01/04/2019 11:20 am REASON FOR STUDY: PAIN IN LEFT FOREARM M79.632 PAIN IN LEFT FOREARM COMPARISON: None. NUMBER OF VIEWS: Two views. TECHNIQUE: Two radiographic images acquired of the left forearm, including elbow and wrist in at [address] one projection. LIMITATIONS: None. FINDINGS: MINERALIZATION: Normal. BONES: No acute fracture. No worrisome bone lesions. SOFT TISSUES: The patient has a known lump distal forearm, posterior aspect. This finding is not vi sualize radiographically. OTHER: No other significant finding. IMPRESSION: 1. No acute osseous findings. TECHNICAL DOCUMENTATION: JOB ID: [id number] [employer]- All Rights Reserved Reading location - IP/workstation name: [email or web address]
== END ==
LOC: OD 11:07
PROVIDERS: ATTEND Internal Medicine
DX: M79.632 Pain in left forearm (principal)

== ENCOUNTER 2019-02-16 14:23 | Emergency (ER) | payer MEDICARE, MEDICAID ==
[2019-02-16 15:12] VITALS: BP 133/76
[2019-02-16] MEDS ORDERED: PREDNISONE 20 MG TABLET PO ONE (15:41)
[2019-02-16] MEDS ORDERED: DIPHENHYDRAMINE HCL 50 MG CAPSULE PO ONE (15:42)
[2019-02-16] MEDS ORDERED: FAMOTIDINE 20 MG TABLET PO ONE (15:43)
--- NOTE | 2019-02-16 15:43 | ER Document Report ---
Addendum entered and electronically signed by JOSE JIMÉNEZ FNP-C 02/16/19 16:08: Discharge - Discharge Clinical Impression: Bee sting reaction Condition: Stable Disposition: HOME, SELF-CARE Instructions: Acute Allergic Reaction ([facility]), Cellulitis ([facility]) Additional Instructions: Warm compress to ice 20 minutes on 20 minutes off several times a day, take Benadryl as needed for allergic reaction, take steroids 3 times daily for 5 days, take Bactrim twice a day for the next 5 days to prevent infection. If you experience any worsening symptoms, eye pain, headache, fever, difficulty breathing return to the ER immediately. Return immediately for any new or worsening symptoms. Follow up with primary care provider, call tomorrow to make followup appointment. Prescriptions: Diphenhydramine HCl [Benadryl] 50 mg PO TIDP PRN #30 capsule PRN Reason: Prednisone [Deltasone 20 mg Tablet] 3 tab PO DAILY 5 Days #15 tablet Sulfamethoxazole/Trimethoprim [Bactrim Ds Tablet] 1 each PO BID #10 tablet Forms: Return to Work Referrals: PAXTON VILLANUEVA MD [Primary Care Provider] - Follow up as needed SU SEBASTIAN DO [ACTIVE STAFF] - Follow up as needed Original Note: HPI - HPI Pain Level: 3 Notes: 53-year-old male presents the ED for complaints of a bee sting to his right eye approximately 2 hours ago, denies anaphylactic reaction to bees, states he is having eye pain, has not tried any yshr-flb-sceldma medications. Patient does wear glasses, does not wear contacts. Reports pain is 2 out of 10, throbbing. Has not applied any warm compress or cold compress to site. Denies fevers, ch ills, chest pain,palpitations, shortness of breath, dyspnea, nausea, vomiting, diarrhea, abdominal pain, hematuria,blurred vision, double vision, loss of vision, speech changes, LH, dizziness, syncope, headaches, neck pain, weakness, bowel or bladder dysfunction, saddle anesthesia, numbness or tingling in bilateral upper or lower extremities equally, muscle paralysis, weakness in bilateral upper or lower extremities equally or rash. Past Medical History - General Information source: Patient - Social History Smoking Status: Unknown if Ever Smoked Family History: Reviewed & Not Pertinent, DM - Past Medical History Cardiac Medical History: Reports: Hx Congestive Heart Failure, Hx Coronary Artery Disease, Hx Hypertension Pulmonary Medical History: Denies: Hx Asthma, Hx Bronchitis, Hx COPD, Hx Pneumonia Neurological Medical History: Reports: 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 Denies: Hx Cerebrovascular Accident Renal/ Medical History: Denies: Hx Peritoneal Dialysis GI Medical History: Reports: Hx Gastroesophageal Reflux Disease Musculoskeletal Medical History: Reports Hx Arthritis - Left knee & hand, Reports Hx Musculoskeletal Trauma Psychiatric Medical History: Reports: Hx Depression Past Surgical History: Reports: Hx Cardiac Surgery - VSD repair - Immunizations Immunizations up to date: Yes Hx Diphtheria, Pertussis, Tetanus Vaccination: Yes Vertical Provider Document - CONSTITUTIONAL Agree With Documented VS: Yes Exam Limitations: No Limitations Notes: PHYSICAL EXAMINATION: GENERAL: Well-appearing, well-nourished and in no acute distress. HEAD: Atraumatic, normocephalic. EYES: Pupils equal round and reactive to light, extraocular movements intact, sclera anicteric, conjunctiva are normal. Right upper lid with induration, erythema, no warmth to touch. Fluostain wnl. PERRLA, normal accommodation, EMOI, peripheral vision bilaterally and equally. no exudates noted. red reflex wnl. fluostain negative for corneal abrasion, foreign body, dendrites, or ulcer. Normal fundi and optic discs. Corneas grossly clear. No nystagmus bilaterally. No ptosis, photophobia. visual acuity 20/40 OU, OS, OD ENT: Nares patent, oropharynx clear without exudates. Moist mucous membranes. NECK: Normal range of motion, supple without lymphadenopathy LUNGS: Breath sounds clear to auscultation bilaterally and equal. No wheezes rales or rhonchi. HEART: Regular rate and rhythm without murmurs ABDOMEN: Soft, nontender, nondistended abdomen. No guarding, no rebound. No masses appreciated. Musculoskeletal: Normal range of motion, no pitting or edema. No cyanosis. NEUROLOGICAL: Cranial nerves grossly intact. Normal speech, normal gait. Norm al sensory, motor exams PSYCH: Normal mood, normal affect. SKIN: Warm, Dry, normal turgor, no rashes or lesions noted. - INFECTION CONTROL TRAVEL OUTSIDE OF THE [place] IN LAST 30 DAYS: No Course - Re-evaluation Re-evalutation: 02/16/19 15:57 53-year-old male afebrile vital stable no distress. Florists stain exam negative for any foreign body, hyphae, corneal abrasion. Noted swelling to right upper lid, patient given Benadryl, prednisone and famotidine while in ER. Advised to apply warm compresses 20 minutes on 20 minutes several times a day.Results were discussed with the patient at this point, after careful consideration I feel that that patient can be discharged from the emergency department, the patient was educated treatments and reasons to return to the emergency department based on their presumed diagnosis as noted above, they were advised to followup with a primary care physician in 2-3 days. Patient was agreeable to plan of care. - Vital Signs Vital signs: Temp Pulse Resp BP Pulse Ox 97.9 F 56 L 16 133/76 H 98 02/16/19 15:11 02/16/19 15:11 02/16/19 15:11 02/16/19 15:11 02/16/19 15:11 Discharge - Discharge Clinical Impression: Bee sting reaction Condition: Stable Disposition: HOME, SELF-CARE Instructions: Acute Allergic Reaction ([facility]), Cellulitis ([facility]) Additional Instructions: Warm compress to ice 20 minutes on 20 minutes off several times a day, take Benadryl as needed for allergic reaction, take steroids 3 times daily for 5 days, take Bactrim twice a day for the next 5 days to prevent infection. If you experience any worsening symptoms, eye pain, headache, fever, difficulty breathing return to the ER immediately. Return immediately for any new or worsening symptoms. Follow up with primary care provider, call tomorrow to make followup appointment. Prescriptions: Diphenhydramine HCl [Benadryl] 50 mg PO TIDP PRN #30 capsule PRN Reason: Prednisone [Deltasone 20 mg Tablet] 3 tab PO DAILY 5 Days #15 tablet Sulfamethoxazole/Trimethoprim [Bactrim Ds Tablet] 1 each PO BID #10 tablet Forms: Return to Work Referrals: PAXTON VILLANUEVA MD [Primary Care Provider] - Follow up as needed SU SEBASTIAN DO [ACTIVE STAFF] - Follow up as needed
== END 2019-02-16 16:18 | disposition home or self-care (01) ==
LOC: ER 14:23
DX: T63.441A Toxic effect of venom of bees, accidental (unintentional), initial encounter (principal); I25.10 Atherosclerotic heart disease of native coronary artery without angina pectoris; I10 Essential (primary) hypertension
CPT/HCPCS: 99282; A9270 ×3; J7512

== ENCOUNTER 2019-12-24 11:09 | Emergency (ER) | payer MEDICARE, MEDICAID ==
[2019-12-24 11:15] VITALS: BP 151/81
--- NOTE | 2019-12-24 12:03 | ER Document Report ---
HPI - HPI Patient complains to provider of: Infected hair follicle left shoulder, concerned about tongue Time Seen by Provider: 12/24/19 12:01 Onset: Yesterday Onset/Duration: Gradual Severity: None Pain Level: Denies Context: 54-year-old male presented to ED for complaint of a lump under his left side of the tongue and a bump on his left shoulder. He denies any pain in either area. He states he just did not want to get worse. There was nothing under his tongue that did not belong under his tongue. There was no swelling no spots noticed lumps. There was a very small red area around a hair follicle on the left shoulder. There is very minimal inflammation to the area. Patient was given instructions on cleaning with soap and water and Epson salt. Patient did verbalize understanding and agreement with treatment plan and patient was discharged home. Associated Symptoms: Other - "Lump under his left side of the tongue "and small bump on the left shoulder Exacerbated by: Denies Relieved by: Denies Similar symptoms previously: No Recently seen / treated by doctor: No - ROS ROS below otherwise negative: Yes - CONSTITUTIONAL Constitutional: DENIES: Fever, Chills - EENT Notes: Dixie there was a lump under the left side of his tongue. There is no spots lumps bumps or red areas there was no ulcerations there was no abnormalities under the left side of his tongue. He was also seen for small red spot to the left shoulder that had no discomfort. Looks like minimal inflammation to a hair follicle. He was given instructions for Epson salt - NEURO Neurology: DENIES: Headache, Weakness, Vision blurred, Dizzinesss / Vertigo - CARDIOVASCULAR Cardiovascular: DENIES: Chest pain - RESPIRATORY Respiratory: DENIES: Trouble Breathing, Coughing - GASTROINTESTINAL Gastrointestinal: DENIES: Abdominal Pain, Nausea, Patient vomiting, Diarrhea, Constipation, Black / Bloody Stools - URINARY Urinary: DENIES: Dysuria, Urgency, Frequency - MUSCULOSKELETAL Musculoskeletal: DENIES: Extremity pain, Back Pain, Neck Pain, Swelling - DERM Skin Color: Other - Small red spot on the left shoulder it did look like it could possibly be the start of an infection to a hair follicle. Patient no pain at this time Past Medical History - General Information source: Patient - Social History Smoking Status: Never Smoker Frequency of alcohol use: None Drug Abuse: None Lives with: Family Family History: Reviewed & Not Pertinent, DM - Past Medical History Cardiac Medical History: Reports: Hx Congestive Heart Failure, Hx Coronary Artery Disease, Hx Hypertension Pulmonary Medical History: Reports: None EENT Medical History: Reports: None Neurological Medical History: Reports: Hx Seizures - [place] 1971 during ASD Endocrine Medical History: Reports: None Renal/ Medical History: Reports: None Malignancy Medical History: Reports None GI Medical History: Reports: Hx Gastroesophageal Reflux Disease Musculoskeletal Medical History: Reports Hx Arthritis - Left knee & hand, Reports Hx Musculoskeletal Trauma Skin Medical History: Reports None Psychiatric Medical History: Reports: Hx Depression Traumatic Medical History: Reports: None Infectious Medical History: Reports: None Past Surgical History: Reports: Hx Cardiac Surgery - VSD repair - Immunizations Immunizations up to date: Yes Hx Diphtheria, Pertussis, Tetanus Vaccination: Yes Vertical Provider Document - CONSTITUTIONAL Agree With Documented VS: Yes Exam Limitations: No Limitations General Appearance: WD/WN, No Apparent Distress - INFECTION CONTROL TRAVEL OUTSIDE OF THE [place] IN LAST 30 DAYS: No - HEENT HEENT: Atraumatic, Normal ENT Exam, Normocephalic, PERRLA - NECK Neck: Normal Inspection, Supple, Thyroid Normal - RESPIRATORY Respiratory: Breath Sounds Normal, No Respiratory Distress, Chest Non-Tender - CARDIOVASCULAR Cardiovascular: Regular Rate, Regular Rhythm - MUSCULOSKELETAL/EXTREMETIES Musculoskeletal/Extremeties: MAEW, FROM, Non-Tender - NEURO Level of Consciousness: Awake, Alert, Appropriate Motor/Sensory: No Motor Deficit, No Sensory Deficit, No Pronator Drift - DERM Notes: Small red bump on the left shoulder appeared to be the beginning of inflammation to hair follicle no signs of infection Course - Vital Signs Vital signs: Temp Pulse Resp BP Pulse Ox 98.0 F 95 16 151/81 H 98 12/24/19 11:14 12/24/19 11:14 12/24/19 11:14 12/24/19 11:14 12/24/19 11:14 Discharge - Discharge Clinical Impression: Infected hair follicle left shoulder Condition: Stable Disposition: HOME, SELF-CARE Additional Instructions: Folliculitis You have a skin infection called folliculitis. This occurs when bacteria infect the hair follicles of the skin. Typically, redness and small pustules are found where hair shafts enter the skin. Allergy, surface irritation, shaving, and exposure to hot tubs predispose to folliculitis. The usual treatment is antibiotic ointment, sometimes combined with cortisone-type medication. Warm compresses are often used. If the infection has moved deeper into the skin, oral antibiotics may be necessary. To avoid future episodes of folliculitis, you must identify (if possible) the factors which allowed this infection to start. If you develop increasing pain, swelling, fever, or red streaks, call the doctor or return for re-evaluation. Epsom Salt Soaks Soak the wound area in a container of warm epsom salt water. If you can't get the wound area into a bucket or mendoza, use a folded towel soaked in the epsom salt solution and apply to the area. Use clean hot tap water (about the temperature of a very warm bath), mixing in about one (1) teaspoon for every pint of water. Two gallon --> 16 teaspoons Epsom Salts One gallon --> 8 teaspoons Epsom Salts Two quarts --> 4 teaspoons Epsom Salts One quart --> 2 teaspoons Epsom Salts Soak the wound for about 20 minutes while gently moving it around in the water. Repeat this four (4) times a day. Acetaminophen Acetaminophen may be taken for pain relief or fever control. It's much safer than aspirin, offering a wider range of "safe" dosages. It is safe during . Some brand names are Tylenol, Panadol, Datril, Anacin 3, Tempra, and Liquiprin. Acetaminophen can be repeated every four hours. The following are maximum recommended dosages: WEIGHT Dose Drops Elixir Chewable(80mg) (LBS.) drprs=droppers tsp=teaspoon 6 40 mg .4 ml (1/2) 6-11 80 mg .8 ml (full) 1/2 tsp 1 tab 12-16 120 mg 1 1/2 drprs 3/4 tsp 1 1/2 tabs 17-23 160 mg 2 drprs 1 tsp 2 tabs 24-30 240 mg 3 drprs 1 1/2 tsp 3 tabs 30-35 320 mg 2 tsp 4 tabs 36-41 360 mg 2 1/4 tsp 4 1/2 tabs 42-47 400 mg 2 1/2 tsp 5 tabs 48-53 480 mg 3 tsp 6 tabs 54-59 520 mg 3 1/4 tsp 6 1/2 tabs 60-64 560 mg 3 1/2 tsp 7 tabs 65-70 600 mg 3 3/4 tsp 7 1/2 tabs 71-76 640 mg 4 tsp 8 tabs 77-82 720 mg 4 1/2 tsp 9 tabs 83-88 800 mg 5 tsp 10 tabs >89 pounds or adults 650 mg to 900 mg Acetaminophen can be repeated every four hours. Maximum daily dose not to exceed 4000 mg. These maximum recommended dosages are slightly higher than the dosages written on the product container, but these dosages are very safe and well below the toxic dosage for acetaminophen. FOLLOW-UP CARE: If you have been referred to a physician for follow-up care, call the physicians office for an appointment as you were instructed or within the next two days. If you experience worsening or a significant change in your symptoms, notify the physician immediately or return to the Emergency Department at any time for re-evaluation. Referrals: PAXTON VILLANUEVA MD [Primary Care Provider] - Follow up as needed
== END 2019-12-24 12:05 | disposition home or self-care (01) ==
LOC: ER 11:09
DX: B99.8 Other infectious disease (principal); I25.10 Atherosclerotic heart disease of native coronary artery without angina pectoris; I10 Essential (primary) hypertension
CPT/HCPCS: 99283

== ENCOUNTER 2020-06-25 09:43 | Day surgery (SDC) | payer MEDICARE, MEDICAID ==
[2020-05-28 11:27] LABS: ABSOLUTE EOSINOPHILS # (AUTO) 0.1 10^3/uL (0.0-0.6); ABSOLUTE LYMPHOCYTES (AUTO) 1.7 10^3/uL (0.5-4.7); ABSOLUTE MONOCYTES (AUTO) 0.6 10^3/uL (0.1-1.4); ABSOLUTE NEUT (AUTO) 2.7 10^3/uL (1.7-8.2); BASOPHILS % (AUTO) 0.3 % (0-2); EOSINOPHILS % (AUTO) 2.1 % (0-6); HEMOGLOBIN 15.2 g/dL (13.5-17.0); LYMPHOCYTES % (AUTO) 32.8 % (13-45); MEAN CORPUSCULAR HEMOGLOBIN 31.4 pg (27.0-33.4); MEAN CORPUSCULAR HGB CONC 34.6 g/dL (32.0-36.0); MEAN CORPUSCULAR VOLUME 91 fl (80-97); MONOCYTES % (AUTO) 12.5 % (3-13); PLATELET COUNT 264 10^3/uL (150-450); RED BLOOD COUNT 4.85 10^6/uL (4.35-5.55); RED CELL DISTRIBUTION WIDTH 13.8 % (11.5-14.0); SEGMENTED NEUTROPHILS % (AUTO) 52.3 % (42-78); TOTAL CELLS COUNTED % (AUTO) 100 %; WHITE BLOOD COUNT 5.1 10^3/uL (4.0-10.5)
[2020-05-28 11:47] LABS: ANION GAP 12 (5-19); BLOOD UREA NITROGEN 17 mg/dL (7-20); CALCIUM 9.7 mg/dL (8.4-10.2); CARBON DIOXIDE 29 mmol/L (22-30); CHLORIDE 98 mmol/L (98-107); GLUCOSE 98 mg/dL (75-110); POTASSIUM 4.2 mmol/L (3.6-5.0)
--- NOTE | 2020-05-28 19:45 | EKG REPORT ---
SEVERITY:- NORMAL ECG - SINUS RHYTHM : Confirmed by: Alvin Bateman MD 28-May-2020 19:44:19
[~2020-06-25 09:43] MED LIST changes: -1/2 NORMAL SALINE 1,000 ML IV PRN; +ACETAMINOPHEN 325 MG TABLET PO PRN; +LACTATED RINGERS 1000 ML IV PRN
[2020-06-25] MEDS ORDERED: CLINDAMYCIN 600 MG/D5W RTU 600 MG/50 ML RTUPB IV ONE (12:10)
[2020-06-25] MEDS ORDERED: LIDOCAINE 2% INJ-PF (20 MG/ML) 10 ML AMPUL ONE (12:24)
[2020-06-25] MEDS ORDERED: PROPOFOL INJ 200 MG/20 ML VIAL IV ONE (12:25)
[2020-06-25] MEDS ORDERED: FENTANYL CITRATE INJ/PF 100 MCG/2 ML AMPUL ONE (12:25)
[2020-06-25] MEDS ORDERED: DEXAMETHASONE SOD PHOSPHATE INJ 4 MG/1 ML VIAL ONE (12:25)
[2020-06-25] MEDS ORDERED: MIDAZOLAM 2 MG/2 ML INJ ONE (12:25)
[2020-06-25] MEDS ORDERED: ONDANSETRON HCL INJ/PF 4 MG/2 ML SDV ONE (12:25)
[2020-06-25] MEDS ORDERED: HYDROMORPHONE HCL INJ/PF 2 MG/ML AMPULE ONE (12:25)
[2020-06-25] MEDS ORDERED: BUPIVACAINE INJ/PF LIPOSOME/PF 266 MG/20 ML SDV ONE (12:27)
[2020-06-25] MEDS ORDERED: GLYCOPYRROLATE 1 MG/5 ML VIAL ONE (12:32)
[2020-06-25] MEDS ORDERED: NEOSTIGMINE METHYLSULFATE 10 MG/10 ML VIAL ONE (12:32)
[2020-06-25] MEDS ORDERED: OXYCODONE-ACETAMINOPHEN 5-325 MG TABLET PO PRN ×3 (13:13→14:28)
[2020-06-25] MEDS ORDERED: FENTANYL CITRATE INJ/PF 100 MCG/2 ML AMPUL IV PRN ×3 (13:13)
[2020-06-25] MEDS ORDERED: DIPHENHYDRAMINE HCL 50 MG/ML VIAL IV PRN (13:13)
[2020-06-25] MEDS ORDERED: MEPERIDINE HCL/PF INJ 25 MG/1 ML DISP.SYRIN IV PRN (13:13)
[2020-06-25] MEDS ORDERED: PROMETHAZINE HCL INJ 25 MG/1 ML VIAL IV PRN ×2 (13:13)
[2020-06-25] MEDS ORDERED: MORPHINE SULFATE 10 MG/ML INJ IV PRN (13:13)
--- NOTE | 2020-06-25 14:25 | Operative Report ---
Nonrecallable Operative Report DATE OF SURGERY: 06/25/20 PREOPERATIVE DIAGNOSIS: Bilateral recurrent inguinal hernias POSTOPERATIVE DIAGNOSIS: Recurrent right inguinal hernia and left negative groin exploration OPERATION: Laparoscopic repair of right inguinal hernia recurrent left groin exploration laparoscopic SURGEON: NAV JARRETT ANESTHESIA: GA TISSUE REMOVED OR ALTERED: None COMPLICATIONS: None ESTIMATED BLOOD LOSS: 10 cc INTRAOPERATIVE FINDINGS: Bilateral meshomas of the internal ring PROCEDURE: Patient was brought to the operating when awake alert stable condition placed on the operating table supine position induced under general anesthesia intubated. After appropriate timeout site verification the procedure commenced. Patient was prepped and draped in usual sterile fashion. Of note the patient has had multiple anterior repairs of bilateral recurrent inguinal hernias with mesh. At least 3 on the left side and 2 on the right side. A infraumbilical incision was made with a 15 blade dissection was carried down through subtenons tissue with Bovie cautery. Just to the right of the umbilicus a small fascial incision was made transversely with a 15 blade and the anterior rectus sheath to identify the rectus muscle which was retracted laterally to identify the posterior rectus sheath. A Spacemaker balloon was placed underneath the rectus muscle on top of the posterior sheath and manipulated down to the pubic symphysis. It was then insufflated under direct vision. This created a space to work in. The spacemaker balloon was removed and the working balloontipped port was placed. Under direct vision 2 additional 5 mm ports were placed in the midline. Attent ion was turned first to the right side. There was a large swelling firm in the right groin abutting the lateral side of the internal ring it felt hard and fixed and after much dissection I was finally able to mobilize the peritoneum away from the right lateral abdominal wall to identify the transversalis muscle and traced this down to this fixated swelling in the right groin internal ring. After much manipulation was evident that there was a balled up piece of mesh that was fixed in the right groin surrounding the cord structures as it entered the internal ring and actually fixed to the cord structures. I cannot remove this piece of mesh that had become inherent to the cord structures. I did able to mobilize it away from the internal ring for a short distance to identify a small defect lateral to the internal ring I am unclear whether there was a hernia sac within this defect it did not appear so. I also did identified the Hesselbach's triangle and did not identify a direct inguinal hernia. Once I mobilized the cord structures up into the retroperitoneum away from the internal ring with this large ball of mesh around them I was able to slide a another piece of polypropylene mesh with a slit down the side underneath the cord structures and around the cord at the internal ring and fixed it posteriorly to Edmar's ligament anterior to the rectus muscle and lateral to the transversalis muscle being careful not to injure the lateral femoral cutaneous nerve. Once this was accomplished I turned attention to the left side similarly the left side was also fixed with a piece of mesh at the internal ring around the cord structures and I did not identify defect at that position. I therefore elected not to pursue an risk injuring the cord structures. The patient did not have an obvious indirect inguinal hernia and upon examination the hasslebacks triangle did not have a direct inguinal hernia on the left side. At this point we reduce the retroperitoneum remove the ports closed the umbilical fascial defect with 0 Vicryl and closed all 3 skin incisions with intracuticular 4 oh bison Steri-Strips completed the procedure estimated blood loss was less than 20 cc sponge needle counts correct x2 the patient was awakened in the operating extubated transferred recovery in stable condition no complications
--- NOTE | 2020-06-25 14:27 | Discharge Summary ---
Discharge Summary (SDC) - Discharge Final Diagnosis: Bilateral inguinal hernia Date of Surgery: 06/25/20 Discharge Date: 06/25/20 Condition: Good Prescriptions: Oxycodone HCl/Acetaminophen [Percocet 10-325 Mg Tablet] 1 each PO Q6HP PRN #10 tablet PRN Reason: Referrals: PAXTON VILLANUEVA MD [Primary Care Provider] - Discharge Diet: As Tolerated Discharge Activity: Activity As Tolerated, No Lifting Over 10 Pounds Report the Following to Your Physician Immediately: Nausea, Vomiting, Increase in Pain, Unusual Bleeding - Patient needs a follow-up appointment with me in 7 to 10 days
[2020-06-25] MEDS ORDERED: OXYCODONE-ACETAMINOPHEN 5-325 MG TABLET ONE (15:30)
[2020-06-25 18:10] VITALS: BP 121/66
== END 2020-06-25 17:11 | disposition home or self-care (01) ==
LOC: OROUT 09:43
PROVIDERS: ATTEND Surgery
DX: K40.91 Unilateral inguinal hernia, without obstruction or gangrene, recurrent (principal); T85.898A Other specified complication of other internal prosthetic devices, implants and grafts, initial encounter; Y83.8 Other surgical procedures as the cause of abnormal reaction of the patient, or of later complication, without mention of misadventure at the time of the procedure; U07.1 COVID-19; M06.9 Rheumatoid arthritis, unspecified; Z98.890 Other specified postprocedural states; Z87.891 Personal history of nicotine dependence; Z79.899 Other long term (current) drug therapy
CPT/HCPCS: 49651; 49999; 93005; 36415; 84132; 0241U ×4; 80048; 93010; 00830; C1758; C1781; C1713; U0003 ×2; J2250; J1100; J3010; J2710; A9270; J2405; J2704; J3490 ×2; C9290; C9803 ×3; 830; 87635; J1170

== ENCOUNTER 2020-06-29 16:21 | Observation (INO) | payer MEDICARE, MEDICAID ==
--- NOTE | 2020-06-29 16:35 | ER Document Report ---
ED Medical Screen (RME) - General Chief Complaint: Suicidal Ideation Stated Complaint: Psych Time Seen by Provider: 06/29/20 16:34 Primary Care Provider: PAXTON VILLANUEVA MD [Primary Care Provider] - Follow up as needed Mode of Arrival: Ambulatory Information source: Patient Notes: 54-year-old male presented to ED for complaint of suicidal ideation. He states he is on a suicidal watch. He states he was on the bus when some I started calling him all kinds of names and questioning and he became very anxious short of breath. He states he is on suicidal precautions already and this just made it so much worse. He states he is very short of breath because of being so anxious. He is alert oriented he does have an elevated pulse of 116-120 blood pressure is a little elevated. He states he did just recently have surgery to the abdomen. He states he was not short of breath until the person started yelling and screaming and calling him names. He states he was already upset and this just made things much worse. He states he called his therapist and they told her to come straight to the hospital. I have greeted and performed a rapid initial assessment of this patient. A comprehensive ED assessment and evaluation of the patient, analysis of test results and completion of medical decision making process will be conducted by an additional ED providers. TRAVEL OUTSIDE OF THE [place] IN LAST 30 DAYS: No - Related Data Allergies/Adverse Reactions: dog dander Allergy (Severe, Verified 06/25/20 10:18) itching Penicillins Allergy (Unknown, Verified 06/25/20 10:18) cats Allergy (Severe, Uncoded 06/25/20 10:18) itching Past Medical History - Past Medical History Cardiac Medical History: Reports: Hx Congestive Heart Failure, Hx Coronary Artery Disease - HEART SX AGE 5, "PATCH", Hx Hypertension - ON MEDS Denies: Hx Heart Attack Pulmonary Medical History: Denies: Hx Asthma, Hx Bronchitis, Hx COPD, Hx Pneumonia Neurological Medical History: Reports: Hx Seizures - ON MEDS; LAST SEIZURE 2 WEEKS AGO.. Denies: Hx Cerebrovascular Accident Renal/ Medical History: Denies: Hx Peritoneal Dialysis GI Medical History: Reports: Hx Gastroesophageal Reflux Disease Musculoskeltal Medical History: Reports Hx Arthritis - Left knee & hand, Reports Hx Musculoskeletal Trauma Psychiatric Medical History: Reports: Hx Depression Past Surgical History: Reports: Hx Cardiac Surgery - VSD repair - Immunizations Immunizations up to date: Yes Hx Diphtheria, Pertussis, Tetanus Vaccination: Yes Physical Exam - Vital signs Vitals: Temp Pulse BP Pulse Ox 98.9 F 121 H 157/77 H 96 06/29/20 16:33 06/29/20 16:33 06/29/20 16:33 06/29/20 16:33 Course - Vital Signs Vital signs: Temp Pulse Resp BP Pulse Ox 98.9 F 121 H 157/77 H 96 06/29/20 16:33 06/29/20 16:33 06/29/20 16:33 06/29/20 16:33 Doctor's Discharge - Discharge Referrals: PAXTON VILLANUEVA MD [Primary Care Provider] - Follow up as needed
[2020-06-29 17:54] LABS: ABSOLUTE EOSINOPHILS # (AUTO) 0.1 10^3/uL (0.0-0.6); ABSOLUTE LYMPHOCYTES (AUTO) 1.7 10^3/uL (0.5-4.7); ABSOLUTE MONOCYTES (AUTO) 0.7 10^3/uL (0.1-1.4); BASOPHILS % (AUTO) 0.3 % (0-2); EOSINOPHILS % (AUTO) 0.8 % (0-6); HEMATOCRIT 26.4 % (37.9-51.0); HEMOGLOBIN 9.4 g/dL (13.5-17.0); LYMPHOCYTES % (AUTO) 26.4 % (13-45); MEAN CORPUSCULAR HEMOGLOBIN 32.4 pg (27.0-33.4); MEAN CORPUSCULAR HGB CONC 35.7 g/dL (32.0-36.0); MEAN CORPUSCULAR VOLUME 91 fl (80-97); MONOCYTES % (AUTO) 11.4 % (3-13); PLATELET COUNT 256 10^3/uL (150-450); RED BLOOD COUNT 2.91 10^6/uL (4.35-5.55); SEGMENTED NEUTROPHILS % (AUTO) 61.1 % (42-78); TOTAL CELLS COUNTED % (AUTO) 100 %; WHITE BLOOD COUNT 6.5 10^3/uL (4.0-10.5)
[2020-06-29 18:10] LABS: APPEARANCE,URINE CLEAR; BILIRUBIN,URINE NEGATIVE (NEGATIVE); COLOR,URINE YELLOW; GLUCOSE, URINE NEGATIVE (NEGATIVE); KETONES,URINE NEGATIVE (NEGATIVE); LEUKOCYTE ESTERASE,URINE NEGATIVE (NEGATIVE); NITRITE,URINE NEGATIVE (NEGATIVE); PROTEIN,URINE NEGATIVE (NEGATIVE); URINE SPECIFIC GRAVITY 1.024; UROBILINOGEN,URINE NEGATIVE mg/dL (<2.0)
[2020-06-29 18:14] LABS: ALBUMIN 4.9 g/dL (3.5-5.0); ALKALINE PHOSPHATASE 65 U/L (38-126); ANION GAP 9 (5-19); ASPARTATE AMINO TRANSFERASE 123 U/L (17-59); BILIRUBIN,DIRECT 0.1 mg/dL (0.0-0.4); BILIRUBIN,TOTAL 2.8 mg/dL (0.2-1.3); BLOOD UREA NITROGEN 32 mg/dL (7-20); CALCIUM 9.5 mg/dL (8.4-10.2); CARBON DIOXIDE 35 mmol/L (22-30); CHLORIDE 92 mmol/L (98-107); GLUCOSE 144 mg/dL (75-110); POTASSIUM 3.8 mmol/L (3.6-5.0); TOTAL PROTEIN 7.9 g/dL (6.3-8.2)
[2020-06-29 18:15] LABS: ACETAMINOPHEN < 10 ug/mL (10-30); ALCOHOL < 10 mg/dL (NONE DETECTED); SALICYLATE < 1.0 mg/dL (2.0-20.0)
[2020-06-29 18:19] LABS: URINE AMPHETAMINES SCREEN NEGATIVE; URINE BARBITURATES SCREEN NEGATIVE; URINE BENZODIAZEPINES SCREEN NEGATIVE; URINE COCAINE SCREEN NEGATIVE; URINE MARIJUANA (THC) SCREEN NEGATIVE; URINE METHADONE SCREEN NEGATIVE; URINE PHENCYCLIDINE SCREEN NEGATIVE
[2020-06-29] MEDS ORDERED: NORMAL SALINE 1000 ML 1,000 ML IV ONE ×2 (18:23→21:46)
--- NOTE | 2020-06-29 19:28 | ER Document Report ---
ED General - General Mode of Arrival: Ambulatory TRAVEL OUTSIDE OF THE [place] IN LAST 30 DAYS: No <МАРИЯ SAUL - Last Filed: 06/29/20 20:40> <STEPHANIE CAMPOVERDE - Last Filed: 06/30/20 01:39> - General Chief Complaint: Suicidal Ideation Stated Complaint: Psych Time Seen by Provider: 06/29/20 16:34 Primary Care Provider: PAXTON VILLANUEVA MD [Primary Care Provider] - Follow up as needed Notes: Patient is a 54-year-old male presents emergency department for shortness of breath and anxiety. In triage, the patient told the provider that he got on the bus and ended up being anxious. I clarified with the patient and he actually did have shortness of breath prior to going on to the bus. Patient states that somebody was calling him "the N word." Patient states that he began to be anxious. Patient reports that he is on a "suicide watch." Patient also states that he had bilateral inguinal hernia surgery a month ago. States that he developed bruising to his lower abdomen. States that his last bowel movement wa s yesterday. Reports that he was constipated prior to then. (МАРИЯ SAUL) - Related Data Allergies/Adverse Reactions: dog dander Allergy (Severe, Verified 06/25/20 10:18) itching Penicillins Allergy (Unknown, Verified 06/25/20 10:18) cats Allergy (Severe, Uncoded 06/25/20 10:18) itching Past Medical History - General Information source: Patient - Social History Family History: Reviewed & Not Pertinent, DM - Past Medical History Cardiac Medical History: Reports: Hx Congestive Heart Failure, Hx Coronary Artery Disease - HEART SX AGE 5, "PATCH", Hx Hypertension - ON MEDS Denies: Hx Heart Attack Pulmonary Medical History: Denies: Hx Asthma, Hx Bronchitis, Hx COPD, Hx Pneumonia Neurological Medical History: Reports: Hx Seizures - ON MEDS; LAST SEIZURE 2 WEEKS AGO.. Denies: Hx Cerebrovascular Accident Renal/ Medical History: Denies: Hx Peritoneal Dialysis GI Medical History: Reports: Hx Gastroesophageal Reflux Disease Musculoskeletal Medical History: Reports Hx Arthritis - Left knee & hand, Reports Hx Musculoskeletal Trauma Psychiatric Medical History: Reports: Hx Depression Past Surgical History: Reports: Hx Cardiac Surgery - VSD repair - Immunizations Immunizations up to date: Yes Hx Diphtheria, Pertussis, Tetanus Vaccination: Yes <МАРИЯ SAUL - Last Filed: 06/29/20 20:40> - General Information source: Patient - Social History Smoking Status: Current Every Day Smoker Frequency of alcohol use: None Drug Abuse: None Family History: Reviewed & Not Pertinent, DM <STEPHANIE CAMPOVERDE - Last Filed: 06/30/20 01:39> Review of Systems <МАРИЯ SAUL - Last Filed: 06/29/20 20:40> - Review of Systems Notes: REVIEW OF SYSTEMS: CONSTITUTIONAL : Denies recent illness. Denies recent unintentional weight loss. Denies fever, chills, or sweats. EENT: Denies eye, ear, throat, or mouth pain, discharge, or symptoms. Denies nasal or sinus congestion. CARDIOVASCULAR: Denies chest pain. RESPIRATORY: See HPI. GASTROINTESTINAL: See HPI. GENITOURINARY: See HPI. MUSCULOSKELETAL: Denies neck and back pain. Denies joint pain or swelling. SKIN: Denies rash, itchiness, or lesions HEMATOLOGIC : Denies easy bruising or bleeding. LYMPHATIC: Denies swollen, painful, enlarged glands. NEUROLOGICAL: Denies no numbness or tingling denies weakness. Denies headache. Denies altered mental status. Denies alteration in speech. PSYCHIATRIC: Denies stress, anxiety, alteration in sleep patterns, or depression. All other systems reviewed and negative. (МАРИЯ SAUL) Physical Exam <МАРИЯ SAUL - Last Filed: 06/29/20 20:40> - Vital signs Vitals: Temp Pulse BP Pulse Ox 98.9 F 121 H 157/77 H 96 06/29/20 16:33 06/29/20 16:33 06/29/20 16:33 06/29/20 16:33 - Notes Notes: PHYSICAL EXAMINATION: GENERAL: Appears well, healthy, well-nourished, no acute distress. HEAD: Normocephalic, atraumatic. EYES: PERRL, conjunctiva normal, all extraocular movements intact, sclera nonicteric ENT: Moist mucous membranes. NECK: Supple, no noticeable swelling, redness, rash. Normal range of motion. LUNGS: Equal breath sounds bilaterally and clear to auscultation. No wheezes rales or rhonchi. CARDIOVASCULAR: S1-S2, regular rate, regular rhythm. Radial pulses 2+, normal. ABDOMEN: Normoactive bowel sounds. Soft, tender lower abdomen, slight guarding, and no masses palpated. Ecchymosis noted around abdomen. Surgical incisions noted. EXTREMITIES: Normal strength and range of motion, no pitting or edema. No cyanosis. NEUROLOGICAL: Moves all extremities upon command. Strength 5/5 in all extremities. PSYCH: Normal mood, normal affect. SKIN: Warm, dry. No rash, lesions, ulcerations noted. Normal skin turgor. (МАРИЯ SAUL) Course - Laboratory Result Diagrams: 06/29/20 17:30 06/29/20 17:30 <МАРИЯ SAUL - Last Filed: 06/29/20 20:40> - Laboratory Result Diagrams: 06/29/20 22:00 06/29/20 17:30 - Diagnostic Test Radiology reviewed: Image reviewed, Reports reviewed <STEPHANIE CAMPOVERDE - Last Filed: 06/30/20 01:39> - Re-evaluation Re-evalutation: 06/29/20 18:39 Hematology shows a drop in hemoglobin from 15.2 to 9.4 1-month ago. C salicylates, acetaminophen, and alcohol are negative. Urine drug screen is also negative. Hemistries show creatinine of 1.81. The patient having recent surgery and him being tachycardic and short of breath. We will send patient for a CTA of the chest. Patient does have significant ecchymosis noted to his abdom en. We will send him for a CT of the abdomen pelvis. (МАРИЯ SAUL) 06/29/20 20:05 Rounded on patient with Мария Saul NP. Patient had a hernia repair on June [address] Huff. He came in today with SOB, HR of 121. He has a noted hemoglobin drop from 15 to 9.1. On physical exam, he has a large area of ecchymosis to the abdomen. He also has an acute kidney injury -- CR of 1.81. This is also new. We obtained a CT of his abdomen and chest. patient also had a passive complaint of SI with no plan. This started after he was on the bus and a person was calling him names. Behavioral health team did see the patient; he does not meet IVC requirements and he is established with [facility] and they were going to give him information for [facility] Crisis. Progress: No PE on CTA of the chest, but there is fluid density in the Retzius space on the right side -- Radiologist states cannot rule out active hemorrhage. I spoke with my ER Attending, Dr. Barnard about the patient -- agrees with the plan to call the student liaison officer surgicalist. Spoke with Dr. Sheth about the patient. We discussed the CT reading -- he states that may be ok for post op but also discussed his HR and hemoglobin. He is aware of the acute kidney injury as well. He would like for me to give the patient another liter of fluid and agrees with the plan to redraw hemoglobin. Will call him with results after these items are performed. 06/30/20 01:[address] Sheth again. Talk to him about patient's dropping hemoglobin. He still feels like the patient does not necessarily need to be admitted and thinks that he can go home with iron. Spoke with my ER attending, Dr. Barnard, about the patient. She went and rounded on the patient. She and I both agree that the patient needs at least an observation admission. We will call medicine for the patient. Spoke with Dr. Perez, on-call for Dr. Villanueva. He feels strongly that this should be a surgical admission. He states he is happy to consult for any medical needs sutures are needed. Dr. Barnard called Dr. Sheth back and asked him to see the patient. Dr. Sheth came and saw the patient. Agrees with admission. Would like NS infusion at 150 ml/hr, coags and CBC/BMP in the AM. We will admit the patient. Also advised Dr. Sheth that the patient also was expressing some Si and that he has been seen by psych and cleared. Patient currently not expressing any SI. (STEPHANIE CAMPOVERDE) - Vital Signs Vital signs: Temp Pulse Resp BP Pulse Ox 98.3 F 103 H 16 141/85 H 97 06/29/20 20:21 06/29/20 20:21 06/29/20 20:21 06/29/20 20:21 06/29/20 20:21 - Laboratory Laboratory results interpreted by me: 06/29/20 06/29/2006/29/20 17:30 17:30 17:30 RBC 2.91 L Hgb 9.4 L Hct 26.4 L RDW Larue % (Auto) Sodium 136.4 L Chloride 92 L Carbon Dioxide 35 H BUN 32 H Creatinine 1.81 H Est GFR ( Amer) 48 L Est GFR (MDRD) Non-Af 39 L Glucose 144 H Total Bilirubin 2.8 H AST 123 H ALT 60 H Urine Ascorbic Acid 40 H Salicylates < 1.0 L Acetaminophen < 10 L 06/29/20 22:00 RBC 2.69 L Hgb 8.6 L Hct 24.7 L RDW 14.1 H Larue % (Auto) 13.6 H Sodium Chloride Carbon Dioxide BUN Creatinine Est GFR ( Amer) Est GFR (MDRD) Non-Af Glucose Total Bilirubin AST ALT Urine Ascorbic Acid Salicylates Acetaminophen Discharge <МАРИЯ SAUL - Last Filed: 06/29/20 20:40> - Discharge Admitting Provider: Meryl Unit Admitted: Surgical Floor <STEPHANIE CAMPOVERDE - Last Filed: 06/30/20 01:39> - Discharge Clinical Impression: Acute kidney injury, Abnormal abdominal CT scan Anemia Qualifiers: Anemia type: unspecified type Qualified Code(s): D64.9 - Anemia, unspecified Condition: Stable Disposition: ADMITTED INPATIENT Referrals: PAXTON VILLANUEVA MD [Primary Care Provider] - Follow up as needed
--- NOTE | 2020-06-29 20:00 | PSYCHOLOGICAL NOTE ---
Psych Note - Psych Note Date seen by psych provider: 06/29/20 Time seen by psych provider: 18:05 Psych Note: [id number] Consent permissions: Nicky Del Rosario, , Patient is a 54 year old male admitted to the ED voluntarily. Patient reports he has been on suicide watch by a mike on a bus who was calling him names. Patient is unable to describe more about the suicide watch and keeps talking about a man on the bus being rude to him. Patient reports having a panic attack while on the bus and states he was getting shortness of breath when the other man was being mean to him. Patient denies suicidal ideation, plan, and intent. He reports having thoughts of giving up, but has God on his side. Patient reports no history of inpatient hospitalizations or suicide attempts. Patient is a poor historian and cannot recall his psychiatric medications, but states he goes to [facility]. Patient reports health issues and to include heart issues and he recently had a hernia surgery on Thursday. Collateral: [facility] attempted to call patients motherNicky, for collateral, however there was no answer at the time of call. A voicemail was left requesting a call back. Patient was alert and oriented to self, person, place, time and situation. Mood was anxious with congruent affect. He denies suicidal ideation, plan, and intent. Patient did not appear to be responding to internal stimuli as evidenced by fair eye contact and answering questions appropriately when addressed. Thought processes are disorganized as he does not answer questions directly. Conversational speech was within normal limits for rate, tone and prosody. Intellectual abilities are estimated to be average. Insight, judgment and impulse control were fair as evidenced by calling therapist when feeling anxious and following up with coming to the ED. He demonstrates future forward goal oriented thinking as he talks about god and wanting to live for him Clinical Presentation: anxiety IVC Criteria per [place] GS 122C Dangerous to others Within the relevant past the individual No has inflicted or attempted to inflict or threatened to inflict serious bodily harm on another AND No that there is a reasonable probability that this conduct will be repeated. OR No has acted in such a way as to create a substantial risk of serious bodily harm to another AND No that there is a reasonable probability that this conduct will be repeated. OR No has engaged in extreme destruction of property AND NO that there is a reasonable probability that this conduct will be repeated. Previous episodes of dangerousness to others, when applicable, may be considered when determining reasonable probability of future dangerous conduct. Clear, cogent, and convincing evidence that an individual has committed a homicide in the relevant past is prima facie evidence of dangerousness to others. Dangerous to self Within the relevant past the individual has done any of the following: acted in such a way as to show ALL of the following: No The individual would be unable without care, supervision, and the continued assistance of others not otherwise available, to exercise self- control, judgment, and discretion in the conduct of the individual's daily responsibilities and social relations or to satisfy the individual's need for nourishment, personal or medical care, long term, or self-protection and safety. AND No There is a reasonable probability of the individual suffering serious physical debilitation within the near future unless adequate treatment is given. A showing of behavior that is grossly irrational, of actions that the individual is unable to control, of behavior that is grossly inappropriate to the situation, or of other evidence of severely impaired insight and judgment shall create a prima facie inference that the individual is unable to care for himself or herself. OR No has attempted suicide or threatened suicide no, he reported being on suicide watch, but denies suicidal ideaiton, plan, and intent; states he was anxious and describes having a panic attack AND No that there is a reasonable probability of suicide unless adequate treatment is given no history; denies plan and intent OR No has mutilated himself or herself or attempted to mutilate himself or herself AND No that there is a reasonable probability of serious self-mutilation unless adequate treatment is given. NOTE: Previous episodes of dangerousness to self, when applicable, may be considered when determining reasonable probability of physical debilitation, suicide, or self-mutilation. Impression\plan: Patient is cleared from psychiatric services. He is not a danger to self or others. He was admitted after being anxious and having shortness of breath on the bus. He denies suicidal ideation, plan, and intent. He denies history of inpatient hospitalizations and suicide attempts. He reports he has thought about ending it all, but due to god has a reason to live. Patient receives outpatient therapy at [facility]. He plans to follow up with [facility] and continue home medications. He was given referrals for [facility] and [facility] mobile crisis as well. Dr. Gray was consulted to care management of this patient; attending physicians in agreement with recommendations and disposition.
--- NOTE | 2020-06-29 20:41 | RADIOLOGY REPORT (SQ) ---
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 COMPARISON: None available TECHNIQUE: Axial contiguous images were obtained from the lung apices to the proximal femurs with intravenous intravenous contrast administered. Images of the chest were obtained utilizing a CTA protocol. MIP reconstructed sagittal and coronal images were also obtained. This exam was performed according to our departmental dose-optimization program, which includes automated exposure control, adjustment of the mA and/or KV according to the patient's size and/or use of iterative reconstruction technique. FINDINGS: The heart size is enlarged. Coronary artery calcifications are seen. No pericardial effusion is seen. The central tracheobronchial tree is patent. The thyroid gland is unremarkable. No significant mediastinal, supraclavicular, or axillary lymphadenopathy is seen. The thoracic aorta is within normal limits in size. The main pulmonary artery is within normal limits of size. There is no evidence of a focal consolidative airspace opacity. There is no evidence of pleural effusions or a pneumothorax. No focal filling defect is seen within the pulmonary arteries to suggest a pulmonary embolism. Midline sternotomy changes are seen. The visualized hepatic parenchyma is unremarkable. No focal enhancing lesion is seen. The gallbladder demonstrates no evidence of calcified gallstones. The spleen is normal in size. The pancreas is unremarkable. The bilateral adrenal glands appear unremarkable. Both kidneys demonstrate no evidence of hydronephrosis. There is contrast excretion noted from both ureters and into the urinary bladder. There is contrast seen at the urinary bladder. There is stranding seen anterior and around the urinary bladder at the space of Retzius. There is stranding and some fat at the bilateral inguinal canals. There is increased density at the bilateral obturator musculature suggesting contusion. Some of this may be postoperative. The stomach is not well distended. The small bowel loops appear unremarkable. No pericolonic inflammatory stranding is seen. The appendix appears unremarkable. There is no evidence of pneumoperitoneum or free fluid. The aorta and IVC appear normal in size. No significantly enlarged lymph nodes are seen in the abdomen or pelvis. Review of the bone show no evidence of any suspicious lytic or blastic lesions. IMPRESSION: There is stranding around the urinary bladder with increased density suggestive of hemorrhage seen at the space of Retzius. There is increased density and enlargement the obturator musculature. This could be due to recent procedure. Active hemorrhage cannot be excluded. No focal filling defect is seen to suggest a pulmonary embolism.
[2020-06-29 22:19] LABS: ABSOLUTE EOSINOPHILS # (AUTO) 0.1 10^3/uL (0.0-0.6); MEAN CORPUSCULAR VOLUME 92 fl (80-97); WHITE BLOOD COUNT 6.4 10^3/uL (4.0-10.5)
[2020-06-29 22:30] LABS: ABSOLUTE LYMPHOCYTES (AUTO) 2.3 10^3/uL (0.5-4.7); ABSOLUTE MONOCYTES (AUTO) 0.9 10^3/uL (0.1-1.4); ABSOLUTE NEUT (AUTO) 3.1 10^3/uL (1.7-8.2); BASOPHILS % (AUTO) 0.8 % (0-2); EOSINOPHILS % (AUTO) 1.6 % (0-6); HEMATOCRIT 24.7 % (37.9-51.0); HEMOGLOBIN 8.6 g/dL (13.5-17.0); LYMPHOCYTES % (AUTO) 35.3 % (13-45); MEAN CORPUSCULAR HEMOGLOBIN 31.9 pg (27.0-33.4); MEAN CORPUSCULAR HGB CONC 34.7 g/dL (32.0-36.0); MONOCYTES % (AUTO) 13.6 % (3-13); PLATELET COUNT 241 10^3/uL (150-450); RED BLOOD COUNT 2.69 10^6/uL (4.35-5.55); RED CELL DISTRIBUTION WIDTH 14.1 % (11.5-14.0); SEGMENTED NEUTROPHILS % (AUTO) 48.7 % (42-78); TOTAL CELLS COUNTED % (AUTO) 100 %
--- NOTE | 2020-06-29 23:49 | ER Document Report ---
Doctor's Note Notes: 06/29/20 23:45 I was asked to evaluate the patient by the VAZQUEZ. Patient presents to the ER because he became very anxious on the bus. He has a history of suicidal ideations and people were calling him names on the bus which made him anxious. He was cleared by psych. Of note, he had an inguinal hernia repair surgery on 08/25. Per reports, it appears that it was a complicated surgery due to mesh that was entrapped. Patient denies any abdominal pain. On exam, patient's abdomen is distended. There is significant ecchymosis anteriorly. Steri-Strips are in place. He is not tender to palpation. He is alert and oriented. Breathing easy on room air. No acute distress. Patient was initially tachycardic. He also had a lower hemoglobin than normal. This was repeated several hours later and his hemoglobin is now 8.6. The CT was concerning for possible active hemorrhage. The VAZQUEZ and I both discussed with the surgeon. The surgeon will come down and evaluate the patient. Dr. Sheth from surgery will admit the patient. 06/29/20 23:46 06/30/20 01:20
--- NOTE | 2020-06-30 00:34 | PDOC H&P ---
History of Present Illness Admission Date/PCP: PAXTON VILLANUEVA MD Patient complains of: Anxiety and shortness of breath History of Present Illness: BRENNAN DELGADO is a 54 year old male with his history of mental instability and being followed at the [facility] who complaint was complaining of anxiety and shortness of breath and then went to ED. He had history of bilateral laparoscopic inguinal hernia repairs on 06/25/2020 by . He is hemoglobin was noted to be 9.1 but the baseline of 15 was noted on 05/28/2020. He had a CT scan of the abdomen which showed hematoma around the inguinal areas and around the bladder. He has a normal baseline BUN and creatinine but noted to have a creatinine of 1.8 today. He did have contrast for CTA of the chest to rule out any PE. Immediately postop he claims he was constipated and called the surgical clinic and was asked to get an [id number] laxative which sounds like milk of magnesia. He then developed diarrhea due to the laxative. He now complains of bloating sensation. Past Medical History Cardiac Medical History: Reports: Congestive Heart Failure, Coronary Artery Disease - HEART SX AGE 5, "PATCH", Hypertension - ON MEDS Denies: Myocardial Infarction Pulmonary Medical History: Denies: Asthma, Bronchitis, Chronic Obstructive Pulmonary Disease (COPD), Pneumonia Neurological Medical History: Reports: Seizures - ON MEDS; LAST SEIZURE 2 WEEKS AGO. GI Medical History: Reports: Gastroesophageal Reflux Disease Musculoskeltal Medical History: Reports: Arthritis - Left knee & hand Psychiatric Medical History: Reports: Depression Hematology: Denies: Anemia Past Surgical History Past Surgical History: Reports: Other - Laparoscopic bilateral inguinal hernia repair 06/25/[address] Huff Social History Smoking Status: Unknown if Ever Smoked Frequency of Alcohol Use: None Hx Recreational Drug Use: No Family History Family History: Reviewed & Not Pertinent, DM Parental Family History Reviewed: Yes Children Family History Reviewed: No Sibling(s) Family History Reviewed.: No Medication/Allergy Home Medications: Ferrous Sulfate [Feosol 325 mg Tablet] 325 mg PO DAILY 03/03/17 Losartan/Hydrochlorothiazide [Hyzaar 100-25 Tablet] 1 mg PO DAILY 03/03/17 Benzonatate [Tessalon Perle 100 mg Capsule] 100 mg PO Q8HP PRN #30 cap 10/11/17 Fluticasone Propionate [Flonase Allergy Relief] 15.8 ml NS DAILY #1 spray.susp 10/11/17 Albuterol Sulfate [Ventolin Hfa 8 gm Mdi (1 Mdi/ER Disp)] 2 puff IH Q4HP PRN 08/14 Buspirone HCl 15 mg PO BID 10/25/18 Atorvastatin Calcium [Lipitor 10 mg Tablet] 10 mg PO QHS 05/28/20 Carboxymethylcellulose Sodium [Refresh Tears] 15 ml OP DAILY 05/28/20 Gabapentin 300 mg PO DAILY 05/28/20 Levocetirizine Dihydrochloride [24Hr Allergy Relief] 5 mg PO QHS 05/28/20 Omeprazole 40 mg PO ASDIR PRN 05/28/20 Sertraline HCl 50 mg PO DAILY 05/28/20 Meloxicam [Mobic 7.5 mg Tablet] 1 tab PO QAM 06/25/20 Montelukast Sodium 10 mg PO DAILY 06/25/20 Multivitamin 1 tab PO DAILY 06/25/20 Oxycodone HCl/Acetaminophen [Percocet 10-325 Mg Tablet] 1 each PO Q6HP PRN #10 tablet 06/25/20 Allergies/Adverse Reactions: dog dander Allergy (Severe, Verified 06/25/20 10:18) itching Penicillins Allergy (Unknown, Verified 06/25/20 10:18) cats Allergy (Severe, Uncoded 06/25/20 10:18) itching Review of Systems Constitutional: PRESENT: other - Denies fever nor chills. Gastrointestinal: PRESENT: bloating, diarrhea Psychiatric: PRESENT: suicidal ideation - Had a history of suicidal ED vision but not at the present Physical Exam Vital Signs: Temp Pulse Resp BP Pulse Ox 98.3 F 103 H 16 141/85 H 97 06/29/20 20:21 06/29/20 20:21 06/29/20 20:21 06/29/20 20:21 06/29/20 20:21 Intake & Output 06/28/20 06/29/20 06/30/20 06:59 06:59 06:59 Intake Total 1000 Balance 1000 Weight 65.7 kg General appearance: PRESENT: no acute distress Mouth exam: PRESENT: dry mucosa Neck exam: PRESENT: full ROM Respiratory exam: PRESENT: clear to auscultation marlene Cardiovascular exam: PRESENT: tachycardia Pulses: PRESENT: normal radial pulses Vascular exam: PRESENT: normal capillary refill GI/Abdominal exam: PRESENT: distended, soft Rectal exam: PRESENT: deferred Extremities exam: PRESENT: full ROM Musculoskeletal exam: PRESENT: ambulatory Neurological exam: PRESENT: alert, oriented to person, oriented to place, oriented to time, oriented to situation Psychiatric exam: PRESENT: anxious Skin exam: PRESENT: normal color, warm Results Laboratory Results: 06/29/20 22:00 06/29/20 17:30 06/29/20 06/29/20 06/29/20 17:30 17:30 17:30 WBC 6.5 RBC 2.91 L Hgb 9.4 L Hct 26.4 L MCV 91 MCH 32.4 MCHC 35.7 RDW 14.0 Plt Count 256 Seg Neutrophils % 61.1 Sodium 136.4 L Potassium 3.8 Chloride 92 L Carbon Dioxide 35 H Anion Gap 9 BUN 32 H Creatinine 1.81 H Est GFR ( Amer) 48 L Glucose 144 H Calcium 9.5 Total Bilirubin 2.8 H AST 123 H Alkaline Phosphatase 65 Total Protein 7.9 Albumin 4.9 Urine Color YELLOW Urine Appearance CLEAR Urine pH 5.0 Ur Specific [place] 1.024 Urine Protein NEGATIVE Urine Glucose (UA) NEGATIVE Urine Ketones NEGATIVE Urine Blood NEGATIVE Urine Nitrite NEGATIVE Ur Leukocyte Esterase NEGATIVE Urine WBC (Auto) 1 Urine RBC (Auto) 2 06/29/20 22:00 WBC 6.4 RBC 2.69 L Hgb 8.6 L Hct 24.7 L MCV 92 MCH 31.9 MCHC 34.7 RDW 14.1 H Plt Count 241 Seg Neutrophils % 48.7 Sodium Potassium Chloride Carbon Dioxide Anion Gap BUN Creatinine Est GFR ( Amer) Glucose Calcium Total Bilirubin AST Alkaline Phosphatase Total Protein Albumin Urine Color Urine Appearance Urine pH Ur Specific [place] Urine Protein Urine Glucose (UA) Urine Ketones Urine Blood Urine Nitrite Ur Leukocyte Esterase Urine WBC (Auto) Urine RBC (Auto) Impressions: Abdomen/Pelvis CT 06/29/20 18:33 IMPRESSION: There is stranding around the urinary bladder with increased density suggestive of hemorrhage seen at the space of Retzius. There is increased density and enlargement the obturator musculature. This could be due to recent procedure. Active hemorrhage cannot be excluded. No focal filling defect is seen to suggest a pulmonary embolism. Chest/Abdomen CTA 06/29/20 18:33 IMPRESSION: There is stranding around the urinary bladder with increased density suggestive of hemorrhage seen at the space of Retzius. There is increased density and enlargement the obturator musculature. This could be due to recent procedure. Active hemorrhage cannot be excluded. No focal filling defect is seen to suggest a pulmonary embolism. Assessment & Plan - Diagnosis (1) Postoperative pelvic hematoma Is this a current diagnosis for this admission?: Yes (2) Acute kidney injury Is this a current diagnosis for this admission?: Yes (3) Hypertension Is this a current diagnosis for this admission?: Yes - Time Time Spent: 30 to 50 Minutes Anticipated Discharge Disposition: Home, Self Care Anticipated Discharge Timeframe: within 48 hours - Inpatient Certification Medical Necessity: Need For IV Fluids, Risk of Complication if Not Cared For in Hospital - Plan Summary Plan Summary: 54-year-old male post laparoscopic bilateral inguinal hernia repair by Dr. Huff on 06/25/2020 came to the ED for anxiety and shortness of breath. He was noted to have a hemoglobin of 9.1 with a basic baseline preop of 15. He has some elevated BUN/creatinine which baseline was normal prior to the surgery. He had about 2 L of saline in the ED with a repeat hemoglobin about 8.5. He was tachycardic at 123 prior to infusion of saline and now it is about 103/min. His abdomen is distended but soft. No nausea or vomiting. Had diarrhea after taking [id number] milk of magnesia. CT scan of the abdomen showed pelvic hematoma. Plans: Continue with IV hydration Follow-up CBC and BMP in a.m.. Will also check PT/INR in a.m. We will discharge when there is improvement in the BUN and creatinine and hemoglobins hematocrit remained stable.
[2020-06-30 00:38] LABS: PROTHROMBIN TIME 14.4 SEC (11.4-15.4)
[2020-06-30 00:39] LABS: PARTIAL THROMBOPLASTIN TIME 29.2 SEC (23.5-35.8)
[2020-06-30] MEDS: NORMAL SALINE 1000 ML 1,000 ML IV PRN ×2 (00:41→18:47)
--- NOTE | 2020-06-30 07:21 | EKG REPORT ---
SEVERITY:- BORDERLINE ECG - SINUS TACHYCARDIA PROBABLE LEFT ATRIAL ABNORMALITY : Confirmed by: Alvin Bateman MD 30-Jun-2020 07:20:39
--- NOTE | 2020-06-30 08:09 | PDOC PROGRESS REPORT ---
Subjective Date:: 06/30/20 Subjective:: complains of mild lower periumbilical pains. Just next to the umbilical inc ision. Reason For Visit: ACUTE KIDNEY INJURY,ANEMIA,ABNORMAL ABDOMINAL CT Physical Exam Vital Signs: Temp Pulse Resp BP Pulse Ox 98.3 F 80 20 138/80 H 100 06/30/20 06:04 06/30/20 06:04 06/30/20 06:04 06/30/20 06:04 06/30/20 06:04 Intake & Output 06/29/20 06/30/20 07/01/20 06:59 06:59 06:59 Intake Total 1999 Balance 1999 Weight 65.7 kg Exam: Vital signs remained stable. The abdomen is less distended and soft. Blood is being drawn for CBC PT and BMP. He continues to be hydrated primary for the MARÍA Results Laboratory Results: 06/29/20 22:00 06/29/20 17:30 06/29/20 06/29/20 06/29/20 17:30 17:30 17:30 WBC 6.5 RBC 2.91 L Hgb 9.4 L Hct 26.4 L MCV 91 MCH 32.4 MCHC 35.7 RDW 14.0 Plt Count 256 Seg Neutrophils % 61.1 Sodium 136.4 L Potassium 3.8 Chloride 92 L Carbon Dioxide 35 H Anion Gap 9 BUN 32 H Creatinine 1.81 H Est GFR ( Amer) 48 L Glucose 144 H Calcium 9.5 Total Bilirubin 2.8 H AST 123 H Alkaline Phosphatase 65 Total Protein 7.9 Albumin 4.9 Urine Color YELLOW Urine Appearance CLEAR Urine pH 5.0 Ur Specific [place] 1.024 Urine Protein NEGATIVE Urine Glucose (UA) NEGATIVE Urine Ketones NEGATIVE Urine Blood NEGATIVE Urine Nitrite NEGATIVE Ur Leukocyte Esterase NEGATIVE Urine WBC (Auto) 1 Urine RBC (Auto) 2 06/29/20 22:00 WBC 6.4 RBC 2.69 L Hgb 8.6 L Hct 24.7 L MCV 92 MCH 31.9 MCHC 34.7 RDW 14.1 H Plt Count 241 Seg Neutrophils % 48.7 Sodium Potassium Chloride Carbon Dioxide Anion Gap BUN Creatinine Est GFR ( Amer) Glucose Calcium Total Bilirubin AST Alkaline Phosphatase Total Protein Albumin Urine Color Urine Appearance Urine pH Ur Specific [place] Urine Protein Urine Glucose (UA) Urine Ketones Urine Blood Urine Nitrite Ur Leukocyte Esterase Urine WBC (Auto) Urine RBC (Auto) Impressions: Abdomen/Pelvis CT 06/29/20 18:33 IMPRESSION: There is stranding around the urinary bladder with increased density suggestive of hemorrhage seen at the space of Retzius. There is increased density and enlargement the obturator musculature. This could be due to recent procedure. Active hemorrhage cannot be excluded. No focal filling defect is seen to suggest a pulmonary embolism. Chest/Abdomen CTA 06/29/20 18:33 IMPRESSION: There is stranding around the urinary bladder with increased density suggestive of hemorrhage seen at the space of Retzius. There is increased density and enlargement the obturator musculature. This could be due to recent procedure. Active hemorrhage cannot be excluded. No focal filling defect is seen to suggest a pulmonary embolism. Assessment & Plan - Diagnosis (1) Postoperative pelvic hematoma Is this a current diagnosis for this admission?: Yes (2) Acute kidney injury Is this a current diagnosis for this admission?: Yes (3) Hypertension Is this a current diagnosis for this admission?: Yes - Time Anticipated Discharge Disposition: Home, Self Care Anticipated Discharge Timeframe: within 24 hours Critical Time spent with patient: 15-24 minutes - Inpatient Certification Medical Necessity: Need For IV Fluids - Plan Summary Plan Summary: 54-year-old male about a week post laparoscopic inguinal hernia repair. Patient noted to be anxious and with shortness of breath and went to ED yesterday. CT scan showed pelvic hematoma and the hemoglobin of 9.1 and went down to 8.4 after 2 L of normal saline. Noted to have slight BUN/creatinine elevation which was normal prelab inguinal hernia repair. The plan is to continue hydration, continue with diet, repeat blood work CBC PT INR and BMP. If remained stable and hemoglobin stabilizes possible discharge in the next 24 hours.
[2020-06-30 08:30] LABS: ANION GAP 8 (5-19); BLOOD UREA NITROGEN 25 mg/dL (7-20); CALCIUM 8.3 mg/dL (8.4-10.2); CARBON DIOXIDE 30 mmol/L (22-30); CHLORIDE 101 mmol/L (98-107); GLUCOSE 114 mg/dL (75-110); POTASSIUM 4.4 mmol/L (3.6-5.0)
[2020-06-30 11:24] LABS: ABSOLUTE EOSINOPHILS # (AUTO) 0.1 10^3/uL (0.0-0.6); ABSOLUTE LYMPHOCYTES (AUTO) 1.5 10^3/uL (0.5-4.7); ABSOLUTE MONOCYTES (AUTO) 0.5 10^3/uL (0.1-1.4); ABSOLUTE NEUT (AUTO) 2.6 10^3/uL (1.7-8.2); BASOPHILS % (AUTO) 0.6 % (0-2); EOSINOPHILS % (AUTO) 2.3 % (0-6); HEMOGLOBIN 8.2 g/dL (13.5-17.0); LYMPHOCYTES % (AUTO) 31.6 % (13-45); MEAN CORPUSCULAR HEMOGLOBIN 31.3 pg (27.0-33.4); MEAN CORPUSCULAR HGB CONC 34.1 g/dL (32.0-36.0); MEAN CORPUSCULAR VOLUME 92 fl (80-97); MONOCYTES % (AUTO) 11.4 % (3-13); PLATELET COUNT 233 10^3/uL (150-450); RED BLOOD COUNT 2.61 10^6/uL (4.35-5.55); SEGMENTED NEUTROPHILS % (AUTO) 54.1 % (42-78); TOTAL CELLS COUNTED % (AUTO) 100 %; WHITE BLOOD COUNT 4.8 10^3/uL (4.0-10.5)
[2020-06-30 11:27] LABS: INTERNATIONAL RATION (INR) 1.01; PROTHROMBIN TIME 13.5 SEC (11.4-15.4)
--- NOTE | 2020-06-30 12:23 | Progress Note ---
Provider Note Provider Note: Patient is seen and examined this morning. He does have some suprapubic and infraumbilical abdominal wall swelling with surrounding area of ecchymosis consistent with a subcutaneous clot. Patient has minimal amounts of pain is tolerating a regular diet. His hemoglobin is stable this morning. We will place a abdominal binder and since his hemoglobin is stable and he is tolerating a regular diet having normal bowel movements he will be okay for discharge home probably tomorrow we will observe him 1 more day today.
[2020-07-01] MEDS: NORMAL SALINE 1000 ML 1,000 ML IV PRN (02:09)
[2020-07-01] MEDS: OXYCODONE-ACETAMINOPHEN 5-325 MG TABLET PO PRN ×2 (02:28→09:09)
--- NOTE | 2020-07-01 05:38 | PDOC DISCHARGE SUMMARY ---
General - Admit/Disc Date/PCP Admission Date/Primary Care Provider: 06/30/20 01:07 PAXTON VILLANUEVA MD Discharge Date: 07/01/20 - Discharge Diagnosis Final Diagnosis: abdominal wall hematoma - Assessment Summary: She was admitted to the hospital for dizziness and weakness. He was seen in the emergency room where he was noted to have acute drop in his hematocrit. He he had recently undergone surgery for abdominal wall hernia and noted to have a large abdominal wall hematoma which accounted for his anemia and blood loss. He was admitted to the regular floor and observed for follow-up hematocrit showed to be stable and the abdominal wall hematoma was quite evident. He is given an abdominal binder and started on a regular diet he tolerated regular diet and was having normal bowel function. He was watched for 48 hours at which time his hematocrit was deemed stable and his abdominal wall hematoma was not expanding. He will be given abdominal binder to be discharged home with NSAIDs pain pills and will be followed up in surgery clinic for the postop hernia repair 7 to 10 days. - Additional Information Resuscitation Status: Full Code Discharge Diet: As Tolerated Discharge Activity: No Lifting Over 10 Pounds Referrals: PAXTON VILLANUEVA MD [Primary Care Provider] - Follow up as needed Prescriptions: Oxycodone HCl/Acetaminophen [Percocet 7.5-325 mg Tablet] 1 each PO Q6HP PRN #10 tablet PRN Reason: Home Medications: Ferrous Sulfate [Feosol 325 mg Tablet] 325 mg PO DAILY 03/03/17 Losartan/Hydrochlorothiazide [Hyzaar 100-25 Tablet] 1 mg PO DAILY 03/03/17 Albuterol Sulfate [Ventolin Hfa 8 gm Mdi (1 Mdi/ER Disp)] 2 puff IH Q4HP PRN 10/25/18 Atorvastatin Calcium [Lipitor 10 mg Tablet] 10 mg PO QHS 05/28/20 Gabapentin 300 mg PO DAILY 05/28/20 Omeprazole 40 mg PO DAILY 05/28/20 Sertraline HCl 50 mg PO DAILY 05/28/20 Meloxicam [Mobic 7.5 mg Tablet] 1 tab PO QAM 06/25/20 Montelukast Sodium 10 mg PO DAILY 06/25/20 Multivitamin 1 tab PO DAILY 06/25/20 Oxycodone HCl/Acetaminophen [Percocet 10-325 Mg Tablet] 1 each PO Q6HP PRN #10 tablet 06/25/20 Oxycodone HCl/Acetaminophen [Percocet 7.5-325 mg Tablet] 1 each PO Q6HP PRN #10 tablet 07/01/20 History of Present Illiness History of Present Illness: BRENNAN DELGADO is a 54 year old male Physical Exam Vital Signs: Temp Pulse Resp BP Pulse Ox 98.0 F 83 16 133/74 H 100 07/01/20 00:56 07/01/20 00:56 07/01/20 00:56 07/01/20 00:56 06/30/20 20:08 Intake & Output 06/29/20 06/30/20 07/01/20 06:59 06:59 06:59 Intake Total 1999 3109 Balance 1999 3109 Weight 65.7 kg 64.7 kg Results Laboratory Results: WBC 4.8 10^3/uL (4.0-10.5) 06/30/20 11:07 RBC 2.61 10^6/uL (4.35-5.55) L 06/30/20 11:07 Hgb 8.2 g/dL (13.5-17.0) L 06/30/20 11:07 Hct 24.0 % (37.9-51.0) L 06/30/20 11:07 MCV 92 fl (80-97) 06/30/20 11:07 MCH 31.3 pg (27.0-33.4) 06/30/20 11:07 MCHC 34.1 g/dL (32.0-36.0) 06/30/20 11:07 RDW 14.0 % (11.5-14.0) 06/30/20 11:07 Plt Count 233 10^3/uL (150-450) 06/30/20 11:07 Lymph % (Auto) 31.6 % (13-45) 06/30/20 11:07 [place] % (Auto) 11.4 % (3-13) 06/30/20 11:07 Eos % (Auto) 2.3 % (0-6) 06/30/20 11:07 Baso % (Auto) 0.6 % (0-2) 06/30/20 11:07 Absolute Neuts (auto) 2.6 10^3/uL (1.7-8.2) 06/30/20 11:07 Absolute Lymphs (auto) 1.5 10^3/uL (0.5-4.7) 06/30/20 11:07 Absolute Monos (auto) 0.5 10^3/uL (0.1-1.4) 06/30/20 11:07 Absolute Eos (auto) 0.1 10^3/uL (0.0-0.6) 06/30/20 11:07 Absolute Basos (auto) 0.0 10^3/uL (0.0-0.2) 06/30/20 11:07 Seg Neutrophils % 54.1 % (42-78) 06/30/20 11:07 Platelet Estimate Cancelled 06/30/20 07:45 PT 13.5 SEC (11.4-15.4) 06/30/20 11:07 INR 1.01 06/30/20 11:07 APTT 29.2 SEC (23.5-35.8) 06/29/20 23:48 Sodium 138.5 mmol/L (137-145) 06/30/20 07:45 Potassium 4.4 mmol/L (3.6-5.0) 06/30/20 07:45 Chloride 101 mmol/L (98-107) 06/30/20 07:45 Carbon Dioxide 30 mmol/L (22-30) 06/30/20 07:45 Anion Gap 8 (5-19) 06/30/20 07:45 BUN 25 mg/dL (7-20) H 06/30/20 07:45 Creatinine 1.01 mg/dL (0.52-1.25) 06/30/20 07:45 Est GFR ( Amer) > 60 (>60) 06/30/20 07:45 Est GFR (MDRD) Non-Af > 60 (>60) 06/30/20 07:45 Glucose 114 mg/dL (75-110) H 06/30/20 07:45 Calcium 8.3 mg/dL (8.4-10.2) L 06/30/20 07:45 Total Bilirubin 2.8 mg/dL (0.2-1.3) H 06/29/20 17:30 Direct Bilirubin 0.1 mg/dL (0.0-0.4) 06/29/20 17:30 Neonat Total Bilirubin Not Reportable 06/29/20 17:30 Neonat Direct Bilirubin Not Reportable 06/29/20 17:30 Neonat Indirect Bili Not Reportable 06/29/20 17:30 AST 123 U/L (17-59) H 06/29/20 17:30 ALT 60 U/L (<50) H 06/29/20 17:30 Alkaline Phosphatase 65 U/L (38-126) 06/29/20 17:30 Total Protein 7.9 g/dL (6.3-8.2) 06/29/20 17:30 Albumin 4.9 g/dL (3.5-5.0) 06/29/20 17:30 Urine Color YELLOW 06/29/20 17:30 Urine Appearance CLEAR 06/29/20 17:30 Urine pH 5.0 (5.0-9.0) 06/29/20 17:30 Ur Specific [place] 1.024 06/29/20 17:30 Urine Protein NEGATIVE mg/dL (NEGATIVE) 06/29/20 17:30 Urine Glucose (UA) NEGATIVE mg/dL (NEGATIVE) 06/29/20 17:30 Urine Ketones NEGATIVE mg/dL (NEGATIVE) 06/29/20 17:30 Urine Blood NEGATIVE (NEGATIVE) 06/29/20 17:30 Urine Nitrite NEGATIVE (NEGATIVE) 06/29/20 17:30 Urine Bilirubin NEGATIVE (NEGATIVE) 06/29/20 17:30 Urine Urobilinogen NEGATIVE mg/dL (<2.0) 06/29/20 17:30 Ur Leukocyte Esterase NEGATIVE (NEGATIVE) 06/29/20 17:30 Urine WBC (Auto) 1 /HPF 06/29/20 17:30 Urine RBC (Auto) 2 /HPF 06/29/20 17:30 U Hyaline Cast (Auto) 4 /LPF 06/29/20 17:30 Urine Mucus (Auto) RARE /LPF 06/29/20 17:30 Urine Ascorbic Acid 40 (NEGATIVE) H 06/29/20 17:30 Salicylates < 1.0 mg/dL (2.0-20.0) L 06/29/20 17:30 Urine Opiates Screen NEGATIVE 06/29/20 17:30 Urine Methadone Screen NEGATIVE 06/29/20 17:30 Acetaminophen < 10 ug/mL (10-30) L 06/29/20 17:30 Ur Barbiturates Screen NEGATIVE 06/29/20 17:30 Ur Phencyclidine Scrn NEGATIVE 06/29/20 17:30 Ur Amphetamines Screen NEGATIVE 06/29/20 17:30 U Benzodiazepines Scrn NEGATIVE 06/29/20 17:30 Urine Cocaine Screen NEGATIVE 06/29/20 17:30 U Marijuana (THC) Screen NEGATIVE 06/29/20 17:30 Serum Alcohol < 10 mg/dL (NONE DETECTED) 06/29/20 17:30 Slides for Path Review Cancelled 06/30/20 07:45 Impressions: Abdomen/Pelvis CT 06/29/20 18:33 IMPRESSION: There is stranding around the urinary bladder with increased density suggestive of hemorrhage seen at the space of Retzius. There is increased density and enlargement the obturator musculature. This could be due to recent procedure. Active hemorrhage cannot be excluded. No focal filling defect is seen to suggest a pulmonary embolism. Chest/Abdomen CTA 06/29/20 18:33
[2020-07-01 08:04] LABS: ABSOLUTE BASOPHILS # (AUTO) 0.1 10^3/uL (0.0-0.2); ABSOLUTE EOSINOPHILS # (AUTO) 0.2 10^3/uL (0.0-0.6); ABSOLUTE LYMPHOCYTES (AUTO) 1.5 10^3/uL (0.5-4.7); ABSOLUTE MONOCYTES (AUTO) 0.8 10^3/uL (0.1-1.4); ABSOLUTE NEUT (AUTO) 4.2 10^3/uL (1.7-8.2); BASOPHILS % (AUTO) 1.2 % (0-2); EOSINOPHILS % (AUTO) 2.9 % (0-6); HEMATOCRIT 27.5 % (37.9-51.0); HEMOGLOBIN 9.3 g/dL (13.5-17.0); LYMPHOCYTES % (AUTO) 22.2 % (13-45); MEAN CORPUSCULAR HEMOGLOBIN 31.2 pg (27.0-33.4); MEAN CORPUSCULAR HGB CONC 33.8 g/dL (32.0-36.0); MEAN CORPUSCULAR VOLUME 92 fl (80-97); MONOCYTES % (AUTO) 11.9 % (3-13); PLATELET COUNT 254 10^3/uL (150-450); RED BLOOD COUNT 2.97 10^6/uL (4.35-5.55); SEGMENTED NEUTROPHILS % (AUTO) 61.8 % (42-78); TOTAL CELLS COUNTED % (AUTO) 100 %; WHITE BLOOD COUNT 6.7 10^3/uL (4.0-10.5)
[2020-07-01] MEDS ORDERED: METOPROLOL TARTRATE PF/INJ 5 MG/5 ML SDV IV ONE (12:00)
[2020-07-01 12:04] VITALS: BP 149/79
[2020-07-01] MEDS ORDERED: ALBUTEROL SULFATE HFA (90 MCG/PUFF) 8 GM MDI IH PRN (12:21)
[2020-07-01] MEDS ORDERED: MULTIVITAMIN TABLET PO SCH (13:00)
[2020-07-01] MEDS ORDERED: HYDROCHLOROTHIAZIDE 25 MG TABLET PO SCH (13:00)
[2020-07-01] MEDS ORDERED: LOSARTAN POTASSIUM 50 MG TABLET PO SCH (13:00)
[2020-07-01] MEDS ORDERED: MONTELUKAST SODIUM 10 MG TABLET PO SCH (13:00)
[2020-07-01] MEDS ORDERED: PANTOPRAZOLE SODIUM 40 MG TABLET.DR PO SCH (13:00)
[2020-07-01] MEDS ORDERED: SERTRALINE HCL 50 MG TABLET PO SCH (13:00)
[2020-07-01] MEDS ORDERED: GABAPENTIN 300 MG CAPSULE PO SCH (13:00)
[2020-07-01] MEDS ORDERED: FERROUS SULFATE 325 MG TABLET PO SCH (13:00)
[2020-07-01] MEDS ORDERED: MELOXICAM 7.5 MG TABLET PO SCH (14:00)
[2020-07-01] MEDS ORDERED: ATORVASTATIN CALCIUM 10 MG TABLET PO SCH (22:00)
[2020-07-02] MEDS ORDERED: (PENDING PHARMACY ID) (Omeprazole [Omeprazole] 40 MG Capsule.Dr) PO SCH (10:00)
[2020-07-02] MEDS ORDERED: MULTIVITAMIN PO SCH (10:00)
[2020-07-02] MEDS ORDERED: HYDROCHLOROTHIAZIDE PO SCH (10:00)
[2020-07-02] MEDS ORDERED: [UNRECOGNIZED DRUG - OTHER] PO SCH (10:00)
[2020-07-02] MEDS ORDERED: LOSARTAN PO SCH (10:00)
== END 2020-07-01 15:00 | disposition home or self-care (01) ==
LOC: ER 16:21 → EH 06-30 01:07 → INTOOBSV 06-30 01:07 → 4S 06-30 06:47
DX: K91.870 Postprocedural hematoma of a digestive system organ or structure following a digestive system procedure (principal); N17.9 Acute kidney failure, unspecified; R93.5 Abnormal findings on diagnostic imaging of other abdominal regions, including retroperitoneum; D64.9 Anemia, unspecified; R00.0 Tachycardia, unspecified; F41.9 Anxiety disorder, unspecified; Z98.890 Other specified postprocedural states; Z79.899 Other long term (current) drug therapy; I50.9 Heart failure, unspecified; I25.10 Atherosclerotic heart disease of native coronary artery without angina pectoris
CPT/HCPCS: 93005; 99285; 96360; 36415 ×3; 80307 ×4; 85025 ×3; 85610; 85730; 80048; 80053; 81001; 71275; 74177; 93010; G0378 ×2; A9270 ×9; J7030 ×3; J3490